=== PATIENT | female | born 1945 | race Caucasian/White ===

== ENCOUNTER → 2018-06-15 14:30 | Outpatient (CLI) | payer MEDICARE, SELFPAY ==
--- NOTE | 2018-06-15 | DI.MG.S_ITS ---
UNILATERAL RIGHT DIGITAL DIAGNOSTIC MAMMOGRAM 3D/2D WITH ADDITIONAL VIEWS: 06/15/2018 CLINICAL: Additional evaluation requested from prior study. Comparison is made to exams dated: 04/20/2018 mammogram, 12/26/2016 mammogram, and 12/15/2016 mammogram - [facility]. The tissue of the right breast is predominantly fatty. There is a 1.1 cm asymmetry in the right breast middle depth central to the nipple seen on the mediolateral oblique view only. No other significant masses or calcifications are seen in the breast. IMPRESSION: INCOMPLETE: NEEDS ADDITIONAL IMAGING EVALUATION The 1.1 cm asymmetry in the right breast is indeterminate. An ultrasound is recommended. This exam was interpreted at Station ID: [id number]. NOTE: For mammograms, a report in lay terms will be sent to the patient. Approximately 15% of breast malignancies will not be visualized mammographically. In the management of a palpable breast mass, a negative mammogram must not discourage biopsy of a clinically suspicious lesion. Electronically Signed By: Dom busch/hilton:06/15/2018 16:30:36 ACR BI-RADS Category 0: Incomplete [id number]
--- NOTE | 2018-06-15 | DI.US.S_ITS ---
ULTRASOUND OF RIGHT BREAST: 06/15/2018 CLINICAL: Patient returns for additional imaging over a suspected mass in the right breast. Comparison is made to exams dated: 06/15/2018 mammogram - [facility], 04/20/2018 mammogram, and 12/26/2016 mammogram - [facility]. Color flow ultrasound of the right breast was performed. Schultz scale images of the real-time examination were reviewed. IMPRESSION: SUSPICIOUS OF MALIGNANCY - FOLLOW-UP RECOMMENDED There is no abnormality seen in the right breast to correspond with the mammography finding, however, stereotactic biopsy is recommended. Findings and recommendations discussed in perosn with the patient by Dr. Pandya of the department of radiology at the time of evaluation. This exam was interpreted at Station ID: [id number]. Electronically Signed By: Dom Quiles M.D. cj/:06/15/2018 16:31:52 letter sent: Biopsy Required Ultrasound BI-RADS: 4 Suspicious abnormality
== END ==
PROVIDERS: PCP Internal Medicine; Visit Provider Internal Medicine
DX: R92.8 Other abnormal and inconclusive findings on diagnostic imaging of breast (principal)
CPT/HCPCS: 76642; 77065; G0279

== ENCOUNTER 2020-02-22 23:20 | Observation (INO) | payer MEDICARE, SELFPAY ==
[2020-02-22 23:30] VITALS: BP 173/81; PULSE 84; RESP 16; TEMP 36.9; O2SAT 98; BMI 31.6
--- NOTE | 2020-02-22 23:30 | PC.NURSE ---
PT states L arm numbness and pain since 1700 today, pt states difficulty finding words and denies any headaches, vision changes, CP, SOB or nausea. Ambulated to room with steady gait. States hx of DM and panic attacks. Pt appears anxious speaking clearly in full sentences.
--- NOTE | 2020-02-22 23:30 | DI.CT.S_ITS ---
PROCEDURE: CT HEAD/BRAIN WO CON INDICATIONS: trouble with speech, Left arm numbness TECHNIQUE: Noncontrast 4.5 mm thick angled axial sections acquired from the foramen magnum to the vertex, with coronal and sagittal reformats. For radiation dose reduction, the following was used: automated exposure control, adjustment of mA and/or kV according to patient size. COMPARISON: None. FINDINGS: Image quality: Excellent. CSF spaces: Basal cisterns are patent. No extra-axial fluid collections. The ventricles are symmetric in size and shape. Brain: No intracranial bleeds or masses. There is cerebral volume loss for age, with resultant ventricular and sulcal prominence. There are periventricular and deep white matter chronic small vessel ischemic changes. There is intracranial internal carotid artery atherosclerosis. Skull and face: Calvarium and visualized facial bones appear intact, without suspicious lesions. Sinuses: Visualized sinuses and mastoids are clear. IMPRESSION: 1. CT head without acute intracranial abnormalities or acute calvarial fractures. 2. Age-related senescent changes and sequela of chronic small vessel ischemic disease. No significant discrepancy with the shift supervisor film processing radiology preliminary report. Dictated by: Walt Morris M.D. on 02/23/2020 at 7:33 Approved by: Walt Morris M.D. on 02/23/2020 at 7:35
[2020-02-22] MEDS: SODIUM CHLORIDE 0.9% 1,000 ML 150 ML IV (23:45)
[2020-02-22 23:57] LABS: Add Manual Diff / Slide Review NO; Basophils Absolute Auto 100 /uL (0-100); Basophils Percent Auto 0.9 % (0-2); Eosinophils Absolute Auto 300 /uL (0-450); Eosinophils Percent Auto 3.9 % (2-4); Hematocrit 40.7 % (36-46); Hemoglobin 14.2 g/dL (12.0-16.0); Lymphocytes Absolute Auto 1200 /uL (1100-4500); Lymphocytes Percent Auto 17.4 % (25-40); Mean Corpuscular HGB Conc 34.8 % (30-36); Mean Corpuscular Hemoglobin 30.9 PG (26-34); Mean Corpuscular Volume 88.8 fL (80-100); Monocytes Absolute Auto 700 /uL (0-900); Monocytes Percent Auto 10.1 % (3-14); Neutrophils Absolute Auto 4500 /uL (1500-7000); Neutrophils Percent Auto 67.7 % (50-75); Platelet Count 187 X10^3/uL (150-400); Red Blood Cell Count 4.59 X10^6/uL (4.0-5.2); Red Cell Distribution Width 13.6 % (11.6-14.8); White Blood Cell Count 6.6 X10^3/uL (4.5-11.0)
[2020-02-23] VITALS (7 sets, daily range): BP systolic 114–154; BP diastolic 61–98; PULSE 66–82; RESP 15–24; TEMP 36–36.8; O2SAT 96–98; BMI 31.6; BMI 31.7
--- NOTE | 2020-02-23 | DI.ECHO.S_ITS ---
[facility] +---------+ : : [address] : : : : [id number] : : : : Phone: [phone] Echocardiogram Report + + :Name: NICK CARROLL Study Date: 02/23/2020 Height: 65 in : :[facility] Weight: 190 lb : : Gender: Female BSA: 1.9 m2 : :: 1945 Age: 74 yrs BP: 142/98 mmHg: :Reason For Study: TIA : :Ordering Physician: Fannie : :Hospitalist Performed By: Melissa Koenig : :Referring: LEIGHA DIAZ : + + Interpretation Summary The left ventricle is normal in size. Left ventricular systolic function is normal without focal wall motion abnormalities. The ejection fraction is estimated to be 60-65%. Diastolic parameters suggest probable normal left ventricular diastolic function and normal filling pressures. The right ventricle is normal in size and function. Pulmonary artery pressures cannot be estimated because of the lack of a measurable TR jet velocity but the IVC suggests a CVP of around 3 mmHg. The left atrium is mildly dilated. Right atrial size is normal. A patent foramen ovale is probably present. There is no significant valvular heart disease. The aortic root is normal size. Procedure: A two-dimensional transthoracic echocardiogram with color flow and Doppler was performed. There is no prior echocardiogram noted for this patient. The study quality was technically adequate. The patient was in normal sinus rhythm during the exam. Left Ventricle: The left ventricle is normal in size. There is normal left ventricular wall thickness. Left ventricular systolic function is normal without focal wall motion abnormalities. The ejection fraction is estimated to be 60-65%. Diastolic parameters suggest probable normal left ventricular diastolic function and normal filling pressures. Right Ventricle: The right ventricle is normal in size and function. Atria: The left atrium is mildly dilated. Right atrial size is normal. A patent foramen ovale is present. Mitral Valve: The mitral valve is normal in structure and function. There is no mitral regurgitation noted. Aortic Valve: The aortic valve is normal in structure and function. The aortic valve is trileaflet. The aortic valve opens well. No aortic regurgitation is present. Tricuspid Valve: The tricuspid valve is normal in structure and function. There is a trace or physiologic amount of tricuspid regurgitation. Pulmonary artery pressures cannot be estimated because of the lack of a measurable TR jet velocity but the IVC suggests a CVP of around 3 mmHg. Pulmonic Valve: The pulmonic valve is normal in structure and function. There is trace pulmonic regurgitation. There is no significant valvular heart disease. Great Vessels: The aortic root is normal size. The ascending aorta could not be visualized. The pulmonary artery is normal size. The IVC is of normal diameter and collapses greater than 50% with a sniff. This suggests a low right atrial pressure of 3 mm Hg. Pericardium/ Pleura There is no pericardial effusion. There is no pleural effusion. MMode/2D Measurements & Calculations LVIDd: 5.0 cm LVOT diam: 2.0 cm LVIDs: 3.4 cm Ao root diam: 3.4 cm FS: 30.9 % Ao Arch Diam (Prox Trans): 2.8 cm EPSS: 0.40 cm IVSd: 0.77 cm LVPWd: 0.79 cm LV lowery. diameter/BSA (cm/m^2): 2.6 LV sys. diameter/BSA (cm/m^2): 1.8 LA A2 area: 24.5 cm2 RA long axis: 4.4 cm LA A4 area: 19.4 cm2 RA area: 15.1 cm2 LA length (vol): 5.6 cm RA vol: 44.2 ml LA vol: 72.1 ml RA : 22.8 ml/m2 LA vol index: 37.2 ml/m2 IVC diam: 1.9 cm RVD1 (basal): 3.4 cm TAPSE: 2.4 cm Doppler Measurements & Calculations Ao V2 max: 109.0 cm/sec LVOT Max Jcarlos: 96.1 cm/sec Ao V2 mean: 68.6 cm/sec LV V1 max P.7 mmHg Ao max P.8 mmHg LV V1 VTI: 19.7 cm Ao mean P.3 mmHg DEMETIRO(I,D): 2.4 cm2 Ao V2 VTI: 24.8 cm DEMETRIO(V,D): 2.7 cm2 sev ratio: 0.79 DEMETRIO indexed to BSA (cm^2/m^2): 1.2 MV E max jcarlos: 85.2 cm/sec PA V2 max: 54.9 cm/sec MV A max jcarlos: 67.4 cm/sec PA V2 mean: 35.8 cm/sec MV E/A: 1.3 PA mean P.60 mmHg Med Peak E' Jcarlos: 7.7 cm/sec E/E' med: 11.1 Lat Peak E' Jcarlos: 10.5 cm/sec E/E' lat: 8.1 E/e' average: 9.6 MV dec time: 0.23 sec SV(LVOT): 59.9 ml Reading Physician:01:57 PM
[2020-02-23 00:03] LABS: Prothrombin Time 11.2 SECONDS (10.1-12.7)
[2020-02-23 00:05] LABS: PTT Partial Thromboplastin Tim 29 SECONDS (26.4-36.2)
[2020-02-23 00:07] LABS: BUN Creatinine Ratio 26.6 (6-22); Blood Urea Nitrogen 17 mg/dL (7-17); Calcium 9.8 mg/dL (8.4-10.2); Carbon Dioxide 26 mmol/L (22-32); Chloride 102 mmol/L (98-107); Creatine Kinase 271 U/L (30-135); Estimated Glomerular Filt Rate > 60.0 mL/min (>60); Glucose 148 mg/dL (80-110); Potassium 4.3 mmol/L (3.4-5.1); Sodium 135 mmol/L (137-145)
--- NOTE | 2020-02-23 00:16 | ED.CHESTPAIN ---
HPI - Chest Pain General Chief Complaint: Chest Pain Stated Complaint: pain left arm went numb from head down arm today Time Seen by Provider: 02/22/20 23:22 Source: patient Mode of arrival: Ambulatory Limitations: no limitations History of Present Illness HPI narrative: 74-year-old female nonsmoker with history of GERD and anxiety presents with a chief complaint of left arm numbness and tingling and difficulty finding words since about 5:00 p.m. today. She denies any other neurologic findings such as blurred vision, headaches or difficulty with ambulation. She denies any recent injury. She denies any history of the same. She denies any dizziness or lightheadedness, she denies any chest pain, shortness of breath for generalized weakness. She denies any provocation or palliation of her symptoms. MD complaint: other Onset (ago): hour(s) Duration: constant Onset: during rest Severity: mild Pain radiation: LUE Treatments prior to arrival chest pain: none Related Data On Oral Contraceptives: No Home Medications Medication Instructions Recorded Confirmed citalopram 10 mg tablet 20 mg PO DAILY 06/14/18 06/14/18 gabapentin 300 mg/6 mL (6 mL) oral 300 mg PO DAILY 06/14/18 06/14/18 solution omeprazole 20 mg capsule,delayed 20 mg PO DAILY 06/14/18 06/14/18 release Allergies Allergy/AdvReac Type Severity Reaction Status Date / Time Penicillins Allergy Verified 06/14/18 11:56 Review of Systems Constitutional Constitutional: Denies chills, Denies fatigue, Denies fever(s), Denies frequent falls, Denies lethargy and Denies weakness Eyes Eyes: Denies change in vision, Denies eye discharge, Denies irritation and Denies loss of vision ENT Ears, Nose, Mouth, and Throat: Denies change in voice, Denies dizziness, Denies neck pain, Denies sore throat and Denies throat swelling Cardiovascular Cardiovascular: Denies chest pain, Denies irregular heart rhythm, Denies lightheadedness, Denies palpitations, Denies dyspnea, Denies dyspnea on exertion and Denies orthopnea Respiratory Respiratory: Denies cough, Denies dyspnea, Denies dyspnea on exertion and Denies wheezing Gastrointestinal Gastrointestinal: Denies abdominal pain, Denies change in bowel habits, Denies diarrhea, Denies nausea and Denies vomiting Genitourinary Genitourinary: Denies hematuria, Denies flank pain, Denies urinary incontinence and Denies urinary urgency Musculoskeletal Musculoskeletal: Denies back pain, Denies muscle weakness, Denies neck pain, Reports numbness and Reports tingling Integumentary/Breasts Skin/Breast: Denies pruritus, Denies erythema, Denies rash and Denies wounds Neurologic Neurologic: Reports abnormal speech, Denies behavioral changes, Reports confusion, Denies dizziness, Denies frequent falls, Denies loss of vision, Reports numbness, Reports tingling and Denies weakness Psychiatric Psychiatric: Denies anxiety, Denies behavioral changes, Reports confusion, Denies depression, Denies homicidal ideation and Denies suicidal ideation Endocrine Endocrine: Denies fatigue, Denies flushing and Denies palpitations Hematologic/Lymphatic Hematologic/Lymphatic: Denies easy bruising Allergic/Immunologic Allergic/Immunologic: Denies urticaria, Denies throat swelling and Denies wheezing Patient History Social History Smoking Status: Never smoker Smoking Status: Never smoker Exam Narrative Exam Narrative: GENERAL: [74] year old patient appears stated age. Well-nourished, well-developed patient, in mild distress. Difficulty finding words on multiple occasions, patient states she knows what she wants to say but is having trouble getting out HEAD: Atraumatic. Normocephalic. EYES: Pupils equal round and reactive. Extraocular motions intact. No scleral icterus. No injection or drainage. ENT: Nose without bleeding, purulent drainage. Throat without erythema, tonsillar hypertrophy or exudate. Airway patent. NECK: Trachea midline. Non tender. NO change with axial loading or ROM of neck CARDIOVASCULAR: Regular rate and rhythm without murmurs, gallops, or rubs. RESPIRATORY: Clear to auscultation. Breath sounds equal bilaterally. No wheezes, rales, or rhonchi. GASTROINTESTINAL: Abdomen soft, non-tender, nondistended. EXTREMITIES: No edema or joint tenderness. No ongoing pain, no reproduceable symptoms BACK: Nontender without deformity or crepitance. No flank tenderness. NEURO: AOx3. SKIN: No rash or erythema of visible areas NIH Stroke Scale 1a. LOC: Patient is alert and keenly responsive (0) 1b. LOC Questions: Patient answers both LOC questions accurately (0) 1c. LOC Commands: Patient performs both tasks correctly (0) 2. Best Gaze: Normal (0) 3. Visual: No visual loss (0) 4. Facial palsy: Normal symmetrical movements (0) 5. Motor arm: No drift (0) 6. Motor leg: No drift (0) 7. Limb ataxia: Absent (0) 8. Sensory: Normal (0) 9. Best language: No aphasia; normal (0) 10. Dysarthria: Normal (0) 11. Extinction and inattention: No abnormality (0) NIHSS: 0 Initial Vital Signs Initial Vital Signs: Vital Signs Temperature 98.4 F 02/22/20 23:30 Pulse Rate 84 02/22/20 23:30 Respiratory Rate 16 02/22/20 23:30 Blood Pressure 173/81 H 02/22/20 23:30 Pulse Oximetry 98 02/22/20 23:30 Course Orders Ordered: ED Orders 02/22/20 23:30 CT head/brain wo con Stat Urine Drug Screen, Rapid Stat 02/22/20 23:38 Basic Metabolic Panel Stat Complete Blood Count AUTO DIFF Stat Partial Thromboplastin Time Stat Prothrombin Time INR Stat Troponin & CK Cardiac Panel Stat 02/22/20 23:40 EKG-12 Lead Stat Sodium Chloride (Normal Saline 0.9%) 1,000 mls @ 150 mls/hr IV CONT ENZO Last Admin: 02/22/20 23:45 Dose: 150 mls/hr Documented by: ALESHA Discontinued Medications Aspirin (Aspirin Chew) 324 mg PO NOW ONE Stop: 02/23/20 00:25 Last Admin: 02/23/20 00:52 Dose: 324 mg Documented by: ALESHA Vital Signs Vital signs: Vital Signs - 8 hr 02/22/20 23:30 02/23/20 01:05 02/23/20 01:30 Temperature 98.4 F Pulse Rate 84 80 79 Respiratory Rate 16 15 Blood Pressure 173/81 H Blood Pressure [Left Arm] 151/61 H 142/98 H Pulse Oximetry 98 97 97 MDM - Chest Pain Lab Data Result diagrams: 02/22/20 23:38 02/22/20 23:38 Labs: Lab Results 02/22/20 02/22/20 02/22/20 Range/Units 23:38 23:38 23:38 WBC 6.6 (4.5-11.0) X10^3/uL RBC 4.59 (4.0-5.2) X10^6/uL Hgb 14.2 (12.0-16.0) g/dL Hct 40.7 (36-46) % MCV 88.8 (80-100) fL MCH 30.9 (26-34) PG MCHC 34.8 (30-36) % RDW 13.6 (11.6-14.8) % Plt Count 187 (150-400) X10^3/uL Neut % (Auto) 67.7 (50-75) % Lymph % (Auto) 17.4 L (25-40) % [place] % (Auto) 10.1 (3-14) % Eos % (Auto) 3.9 (2-4) % Baso % (Auto) 0.9 (0-2) % Neut # (Auto) 4500 (1289-1573) /uL Lymph # (Auto) 1200 (5396-7702) /uL [place] # (Auto) 700 (0-900) /uL Eos # (Auto) 300 (0-450) /uL Baso # (Auto) 100 (0-100) /uL PT 11.2 (10.1-12.7) SECONDS INR 1.0 (0.9-1.3) APTT 29 (26.4-36.2) SECONDS Sodium 135 L (137-145) mmol/L Potassium 4.3 (3.4-5.1) mmol/L Chloride 102 (98-107) mmol/L Carbon Dioxide 26 (22-32) mmol/L BUN 17 (7-17) mg/dL Creatinine 0.64 (0.52-1.04) mg/dL Estimated GFR > 60.0 (>60) mL/min BUN/Creatinine Ratio 26.6 H (6-22) Glucose 148 H (80-110) mg/dL Calcium 9.8 (8.4-10.2) mg/dL Total Creatine Kinase 271 H (30-135) U/L CK-MB (CK-2) 4.75 H (<2.37) ng/mL CK-MB (CK-2) Rel Index 1.8 (1.5-5.0) % Troponin I < 0.012 (0.01-0.034) ng/mL ECG Data Attestation: I personally reviewed and interpreted this ECG as follows: Interpretation: EKG is normal sinus rhythm rate [79 ] and free of any signs of ischemia or ectopy. No ST segmental elevation or depression. No T wave inversions MDM Narrative Medical decision making narrative: Patient has resolved confusion, expressive aphasia and LUE numbness. CT normal. TIA highly considered. She does have longstanding history of some L shoulder pain which occasionally causes radiation of pain into her arm which improves with manipulation. Today's episode was much different. No reproduceability. Cardiac etiology also considered, but nonischemic EKG, normal troponin and lack of other typical cardiac equivalents. Patient requires further evaluation with Stroke MRI and likely Echo Discharge Plan Departure Patient Disposition: Admitted as Observation Clinical Impression: Brain TIA Admit Date/Time: 02/23/20 02:27 Admit Provider: Hina Deal
[2020-02-23 00:19] LABS: Troponin I < 0.012 ng/mL (0.01-0.034)
[2020-02-23 00:22] LABS: CKMB % Relative Index 1.8 % (1.5-5.0); Creatine Kinase MB 4.75 ng/mL (<2.37)
[2020-02-23 00:24] LABS: HEMOLYSIS 52 (0-50)
[2020-02-23] MEDS: ASPIRIN 81 MG CHEW TAB 324 MG PO (00:52)
--- NOTE | 2020-02-23 02:53 | DI.MRI.S_ITS ---
PROCEDURE: MR STROKE Pre- and post-contrast brain MRI, non-contrast brain MR angiogram, pre- and postcontrast neck MR angiogram INDICATIONS: Left sided weakness and tingling of mouth, jaw and arm TECHNIQUE: Brain: Noncontrast axial T1 spin echo, axial T2 fast spin echo, sagittal and axial FLAIR, coronal T2 fast spin echo, axial gradient echo, axial diffusion and ADC through the brain. After the administration of contrast, axial 3D VIBE of the cranial vasculature and brain. Brain MRA: Non-contrast 3-D time of flight MR angiogram, with multiple kfczmne-fodainrsi-hksfiuadih (MIP) reformats performed. Neck MRA: Axial and sagittal TruFISP through the neck. Coronal dynamic MR angiogram during administration of contrast in the arterial and venous phases, with 3-dimenstional kcxdbsw-vseenahch-exsztmlwpm (MIP) reformats constructed from subtraction images. COMPARISON: [facility], CT, CT HEAD/BRAIN WO CON, 02/22/2020, 23:34. FINDINGS: Image quality: Excellent. BRAIN: CSF spaces: Ventricles are normal in size and shape. Basal cisterns are patent. No extra-axial fluid collections. Brain: No intracranial bleeds or mass effects. Mild cerebral volume loss and periventricular white matter chronic small vessel makes it changes are present. Schultz-white matter interface is normal. Diffusion weighted images show no acute ischemic insults. Brainstem appears normal. Normal intravascular flow voids are present. No abnormal intracranial enhancement. Skull and face: Calvarial marrow signal is normal. Orbits appear normal. Sinuses: Sinuses and mastoids are clear. BRAIN MR ANGIOGRAM: Anterior circulation: Intracranial internal carotid arteries are normal in size and enhancement. The flow within the paired anterior cerebral arteries is normal and symmetric. The flow within the middle cerebral arteries is normal and symmetric. The anterior communicating artery is seen. No significant stenoses, occlusions or aneurysms. Posterior circulation: The visualized portions of the vertebral arteries demonstrate normal caliber, and join to form a normal appearing basilar artery. The posterior cerebral arteries are symmetric. No significant stenosis, occlusion or aneurysms. NECK MR ANGIOGRAM: Carotids: Great vessels demonstrate a conventional anatomy as they arise from the aortic arch. The origins of the common carotid arteries appear patent. The calibers and courses of both common carotid arteries are normal. The bifurcation regions appear normal bilaterally. The internal carotid arteries demonstrate normal course and caliber. Posterior circulation: The origins of the vertebral arteries appear patent. More superior portions of both vertebral arteries demonstrate normal course and caliber, and join to form a normal appearing basilar artery. Miscellaneous: Subclavian arteries appear patent. Pre-contrast images through the neck show no soft tissue abnormalities. Degenerative disc disease in cervical spine. There is moderate cardiomegaly. IMPRESSION: BRAIN MRI: 1. No acute intracranial abnormalities. 2. Mild cerebral volume loss and chronic microvascular ischemic changes. BRAIN MR ANGIOGRAM: 1. No hemodynamic significant stenosis or occlusion in anterior circulations. 2. No hemodynamic significant stenosis or occlusion in posterior circulations. NECK MR ANGIOGRAM: 1. No high-grade stenosis or occlusion in cervical carotid arteries bilaterally. 2. No high-grade stenosis or occlusion in cervical vertebral arteries bilaterally. 3. Moderate cardiomegaly. Dictated by: Magdi Bruno M.D. on 02/23/2020 at 11:04 Approved by: Magdi Bruno M.D. on 02/23/2020 at 11:32
--- NOTE | 2020-02-23 03:00 | PM.HP.1 ---
History of Present Illness History of Present Illness Date Patient Seen: 02/23/20 Time Patient Seen: 03:00 Chief complaint: pain left arm went numb from head down arm today Narrative: Griselda Haney is a pleasant 74-year-old female who presents with neurologic symptoms that started at 5:00 p.m. on 02/21. She was sitting and watching TV when she started to have nerve pain that usually shoots down her arm. She states that was different this time it included having numbness from the head neck and arm area and lasted for about 1 minutes. She also became nauseous and states that she poorly today she is a diabetic and is under a lot of stress due to continuing to have to work. She also stated that she had difficulties getting words out and apparently per the ED provider she was confused. She denies difficulty swallowing, chest pain, shortness of breath, vomiting, dysuria, diarrhea or constipation. Patient lives in [facility], PCP is Dr. Strauss. She completed radiation and chemotherapy treatment for breast cancer at [facility]. She states that she had to go in for an MRI and they sent her to [facility] because she states that she is very claustrophobic in small places and rooms. She states that she actually gets claustrophobic sitting in a van. Patient History Medical History Anxiety (Chronic) Gonzales's esophagus with esophagitis (Chronic) Diabetes type 2, controlled (Chronic) History of right breast cancer (Acute) Surgical History H/O mastectomy (Acute) Family & Social History Family History Mother Breast cancer Father Colon cancer Safety & Behavioral: Feels Safe in Current Yes Environment Tobacco & Substance use: Smoking Status Never smoker Meds Home Medications and Allergies Home Medications Medication Instructions Recorded Confirmed Type citalopram 10 mg tablet 20 mg PO DAILY 06/14/18 02/23/20 History omeprazole 20 mg capsule,delayed 20 mg PO DAILY 06/14/18 02/23/20 History release letrozole 2.5 mg PO DAILY 02/23/20 02/23/20 History metformin 500 mg PO BID 02/23/20 02/23/20 History Allergies Allergy/AdvReac Type Severity Reaction Status Date / Time Penicillins Allergy Verified 06/14/18 11:56 Review of Systems Review of Systems ROS: Yes All systems reviewed with the patient and are negative except as otherwise documented Exam Vital Signs (past 8 hours): - 02/22/20 23:30 02/23/20 01:05 02/23/20 01:30 Temperature 98.4 F Pulse Rate 84 80 79 Respiratory Rate 16 15 Blood Pressure 173/81 H Blood Pressure [Left Arm] 151/61 H 142/98 H Pulse Oximetry 98 97 97 02/23/20 02:00 Temperature Pulse Rate 82 Respiratory Rate 24 Blood Pressure Blood Pressure [Left Arm] 146/63 H Pulse Oximetry 96 Oxygen Delivery Method Room Air Narrative Exam Narrative: Gen: Alert, oriented, well-developed 74 y.o. female, mildly anxious HEENT: normocephalic, atraumatic, conjunctiva clear, sclera non-icteric, oral mucosa pink and moist Neck: supple, full ROM, no JVD, trachea is midline Resp: Lungs CTA, non-labored breathing CV: RRR, no murmur or rubs Abd: soft, non-tender, normoactive BTs Skin: no lesions or rashes, dry and intact Neuro: Alert and oriented X 4 w/no focal deficits Extremities: moves all 4 extremities, is ambulatory, negative Lorna?s sign Psyche: normal mood and affect. Objective Labs Result Diagrams: 02/22/20 23:38 02/22/20 23:38 Labs: Laboratory Results - last 24 hr 02/22/20 02/22/20 02/22/20 23:38 23:38 23:38 WBC 6.6 RBC 4.59 Hgb 14.2 Hct 40.7 MCV 88.8 MCH 30.9 MCHC 34.8 RDW 13.6 Plt Count 187 Neut % (Auto) 67.7 Lymph % (Auto) 17.4 L Garrard % (Auto) 10.1 Eos % (Auto) 3.9 Baso % (Auto) 0.9 Neut # (Auto) 4500 Lymph # (Auto) 1200 Garrard # (Auto) 700 Eos # (Auto) 300 Baso # (Auto) 100 PT 11.2 INR 1.0 APTT 29 Sodium 135 L Potassium 4.3 Chloride 102 Carbon Dioxide 26 BUN 17 Creatinine 0.64 Estimated GFR > 60.0 BUN/Creatinine Ratio 26.6 H Glucose 148 H Calcium 9.8 Total Creatine Kinase 271 H CK-MB (CK-2) 4.75 H CK-MB (CK-2) Rel Index 1.8 Troponin I < 0.012 Assessment & Plan Assessment & Plan narrative: Griselda Haney will be placed into observation for further workup of a TIA versus cardiac Suspected TIA, acute and present on admission -MR stroke and MRI of the neck ordered -NIH scale q shift Chest pain rule out, acute and present on admission -Left head through arm pain concerning for cardiac cause -echo in the am -First troponin was negative, pending second one at 0500. Diabetes type 2, chronic and present on admission -A1c ordered and pending -Metformin held -Medium dose insulin correctional scale ordered achs Right sided breast cancer, chronic and present on admission -Continue home dose of letrozole 2.5 mg po daily Barretts Esophogitis, chronic and present on admission -Continue home dose of omeprazole, 20 mg po daily Anxiety disorder -continue home dose of citalopram 20 mg po daily -Patient will likely need oral ativan prior to undergoing MRI due to anxiety and claustrophobia Consults: none Patient is observation status as her stay is not likely to exceed 2 midnights. FEN: IV saline lock, Carb control diet, BMP in the am. VTE prophylaxis: Bilateral SCDs Dispo: Probable discharge to home Code Status: Full Code as discussed with patient
--- NOTE | 2020-02-23 03:33 | P.HP_ITS ---
History of Present Illness History of Present Illness Chief complaint: pain left arm went numb from head down arm today Narrative: Griselda Haney is a pleasant 74-year-old female who presents with neurologic symptoms that started at 5:00 p.m. on 02/21. She was sitting and watching TV when she started to have nerve pain that usually shoots down her arm. She states that was different this time it included having numbness from the head neck and arm area and lasted for about 1 minutes. She also became nauseous and states that she poorly today she is a diabetic and is under a lot of stress due to continuing to have to work. She also stated that she had difficulties getting words out and apparently per the ED provider she was confused. She denies difficulty swallowing, chest pain, shortness of breath, vomiting, dysuria, diarrhea or constipation. Patient lives in [facility], PCP is Dr. Strauss. She completed radiation and chemotherapy treatment for breast cancer at [facility]. She states that she had to go in for an MRI and they sent her to [facility] because she states that she is very claustrophobic in small places and rooms. She states that she actually gets claustrophobic sitting in a van. Patient History Medical History Anxiety (Chronic) Gonzales's esophagus with esophagitis (Chronic) Diabetes type 2, controlled (Chronic) History of right breast cancer (Acute) Surgical History H/O mastectomy (Acute) Family & Social History Family History Mother Breast cancer Father Colon cancer Social History: household members family Prior Living Arrangements House Safety & Behavioral: Feels Safe in Current Yes Environment Been Physically Hurt or No Threatened By a Person Suicide Plan Description No Plan Tobacco & Substance use: Smoking Status Never smoker alcohol intake former Substance Use Type does not use Meds Home Medications and Allergies Home Medications Medication Instructions Recorded Confirmed Type citalopram 10 mg tablet 20 mg PO DAILY 06/14/18 02/23/20 History omeprazole 20 mg capsule,delayed 20 mg PO DAILY 06/14/18 02/23/20 History release letrozole 2.5 mg PO DAILY 02/23/20 02/23/20 History metformin 500 mg PO BID 02/23/20 02/23/20 History Allergies Allergy/AdvReac Type Severity Reaction Status Date / Time Penicillins Allergy Verified 06/14/18 11:56 Exam Vital Signs (past 8 hours): - 02/22/20 23:30 02/23/20 01:05 02/23/20 01:30 Temperature 98.4 F Pulse Rate 84 80 79 Respiratory Rate 16 15 Blood Pressure 173/81 H Blood Pressure [Left Arm] 151/61 H 142/98 H Pulse Oximetry 98 97 97 02/23/20 02:00 02/23/20 03:05 Temperature 96.8 F L Pulse Rate 82 79 Respiratory Rate 24 16 Blood Pressure 154/79 H Blood Pressure [Left Arm] 146/63 H Pulse Oximetry 96 98 Oxygen Delivery Method Room Air Oxygen Flow Rate 0 Objective Labs Result Diagrams: 02/22/20 23:38 02/22/20 23:38 Labs: Laboratory Results - last 24 hr 02/22/20 02/22/20 02/22/20 23:38 23:38 23:38 WBC 6.6 RBC 4.59 Hgb 14.2 Hct 40.7 MCV 88.8 MCH 30.9 MCHC 34.8 RDW 13.6 Plt Count 187 Neut % (Auto) 67.7 Lymph % (Auto) 17.4 L Davidson % (Auto) 10.1 Eos % (Auto) 3.9 Baso % (Auto) 0.9 Neut # (Auto) 4500 Lymph # (Auto) 1200 Davidson # (Auto) 700 Eos # (Auto) 300 Baso # (Auto) 100 PT 11.2 INR 1.0 APTT 29 Sodium 135 L Potassium 4.3 Chloride 102 Carbon Dioxide 26 BUN 17 Creatinine 0.64 Estimated GFR > 60.0 BUN/Creatinine Ratio 26.6 H Glucose 148 H Calcium 9.8 Total Creatine Kinase 271 H CK-MB (CK-2) 4.75 H CK-MB (CK-2) Rel Index 1.8 Troponin I < 0.012 Quality VTE Deep Vein Thrombosis/Pulmonary Embolism Present on Admission: No
[2020-02-23 04:15] LABS: Ur Creatinine Normal (Normal); Ur Specific Gravity Normal (Normal); Urine pH Normal (Normal)
[2020-02-23 04:16] LABS: UR Morphine/Opiate cutoff 300 Negative (Negative); Urine Amphetamines Negative (Negative); Urine Barbiturates Negative (Negative); Urine Benzodiazepines Negative (Negative); Urine Cocaine Negative (Negative); Urine MDMA Negative (Negative); Urine Methadone Negative (Negative); Urine Methamphetamines Negative (Negative); Urine Oxycodone Negative (Negative); Urine Phencyclidine Negative (Negative); Urine Tetrahydrocannabinol Negative (Negative); Urine Tricyclic Antidepressant Negative (Negative)
--- NOTE | 2020-02-23 05:04 | PC.ADMIT ---
Addendum entered by Chio Batista R.N. 02/23/20 05:12: [facility] on admission was 0. Original Note: Patient admitted to room 217 @ 0300 from ED; arrived by stretcher but walked from stretcher into room. Is alert and oriented. Breath sounds CTA with RA sat of 98%. HRR; placed on tele with reading of SR w/BBB. Denies nausea. BT present and abdomen is soft. Denies dysuria or frequency but states she does have urgency; denies incontinence. States she came in due to pain in left arm followed by sensation of numbness in head radiating into left arm last approximately 2 minutes and jittery feeling. States she still is having intermittent sensation of discomfort in left arm. Repeatedly stating, throughout admission, I shouldn't have come here. Endorses increased stress at her job at a [email or web address] due to decrease in staff due to COVID-19 pandemic. Also states she has her sister living with her which has additionally increased her stress as sister tries to take over. Is able to turn self in bed and is steady on feet but advised to call for SBA when getting up to bathroom at night for safety purposes; verbalizes understanding. No skin issues. Fall risk score is moderate; bed alarm activated for night time safety. UA obtained and sent to lab for drug screen ordered in ER. Bilateral calf SCD's applied. Instructed in use of call light and bed controls. [id number] Admission Note: The patient,Griselda Haney,74 y/o, was given written information regarding hospital policies, unit procedures and contact persons. Patient's smoking status: Never smoker. Vital Signs - 8 hr 02/22/20 23:30 02/23/20 01:05 02/23/20 01:30 Temperature 98.4 F Pulse Rate 84 80 79 Respiratory Rate 16 15 Blood Pressure 173/81 H Blood Pressure [Left Arm] 151/61 H 142/98 H Pulse Oximetry 98 97 97 02/23/20 02:00 02/23/20 03:05 Temperature 96.8 F L Pulse Rate 82 79 Respiratory Rate 24 16 Blood Pressure 154/79 H Blood Pressure [Left Arm] 146/63 H Pulse Oximetry 96 98
[2020-02-23] MEDS: PANTOPRAZOLE 20 MG TABLET PO (05:25)
[2020-02-23 05:47] LABS: Add Manual Diff / Slide Review NO; Basophils Absolute Auto 100 /uL (0-100); Basophils Percent Auto 0.8 % (0-2); Eosinophils Absolute Auto 300 /uL (0-450); Eosinophils Percent Auto 4.4 % (2-4); Hematocrit 39.1 % (36-46); Hemoglobin 13.5 g/dL (12.0-16.0); Lymphocytes Absolute Auto 1500 /uL (1100-4500); Lymphocytes Percent Auto 21.7 % (25-40); Mean Corpuscular HGB Conc 34.5 % (30-36); Mean Corpuscular Hemoglobin 30.6 PG (26-34); Mean Corpuscular Volume 88.8 fL (80-100); Monocytes Absolute Auto 700 /uL (0-900); Monocytes Percent Auto 9.4 % (3-14); Neutrophils Absolute Auto 4500 /uL (1500-7000); Neutrophils Percent Auto 63.7 % (50-75); Platelet Count 176 X10^3/uL (150-400); Red Blood Cell Count 4.41 X10^6/uL (4.0-5.2); Red Cell Distribution Width 13.9 % (11.6-14.8); White Blood Cell Count 7.1 X10^3/uL (4.5-11.0)
[2020-02-23 05:57] LABS: BUN Creatinine Ratio 27.1 (6-22); Blood Urea Nitrogen 16 mg/dL (7-17); Calcium 9.7 mg/dL (8.4-10.2); Carbon Dioxide 25 mmol/L (22-32); Chloride 104 mmol/L (98-107); Cholesterol 168 mg/dL (140-199); Estimated Glomerular Filt Rate > 60.0 mL/min (>60); Glucose 129 mg/dL (80-110); HDL Cholesterol 41 mg/dL (40-60); HEMOLYSIS 37 (0-50); LDL Cholesterol Calculated 74 mg/dL (<100); Sodium 139 mmol/L (137-145); Triglycerides 265 mg/dL (35-150)
[2020-02-23 06:08] LABS: Troponin I < 0.012 ng/mL (0.01-0.034)
[2020-02-23 06:18] LABS: Hemoglobin A1C% w Est Avg Glu 7.1 % (4.0-6.0)
[2020-02-23] MEDS: CITALOPRAM 20 MG TABLET PO (09:23)
[2020-02-23] MEDS: ASPIRIN EC 81 MG TABLET PO (09:23)
[2020-02-23] MEDS: INFLUENZA VACCINE 0.5 ML SYRINGE IM (09:24)
[2020-02-23] MEDS: LETROZOLE 2.5 MG TABLET PO (09:30)
--- NOTE | 2020-02-23 11:24 | CM.DANOTE ---
Discharge Planning/Care Management DCP: assessment: case received and discussed in Team Rounds. EMR reviewed. Met then with pt and introduced self and role. Pt is a 74 year old female who admitted early this morning to care of hospitalist team. Payer: Medicare and AARP Admission status: OBS: confirmed by UR ALIYA Henderson PCP: was Dr. Strauss until he retired: currently: Dr. Gallagher (she has seen him only once). DCP template completed with info given by pt during our discussion. Pt confirms she has had the MRI today and is waiting for the ECHO. She reports her arm feels much better at this point. PT/OT have been ordered but have not yet worked with pt. Pt appears comfortable and converses easily at this time. 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 At this point will await test results and therapy input. Dr. Parisi will be seeing pt later today. P: likely home when stable for same but follow: pt's friend Emily Solano: [phone]: will be picking her up when she is ok'd for d/c. CM Discharge Assessment Start: 02/23/20 11:23 Freq: Status: Active Protocol: Document 02/23/20 11:23 ITV (Rec: 02/23/20 11:24 ITV [id number]) Discharge Planning Assessment Advance Directives? No History Provided By Patient,Medical Record Has Patient been admitted in last 30 No days? Prior Living Arrangements House Household Members family Comment lives with her sister Xi Type of transporation used prior to Drives own vehicle admit Independent with ADL's Yes Is patient alert and oriented? Yes Whiteboard Updated in Patient Room with Yes name and ext. 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
--- NOTE | 2020-02-23 11:25 | OT.IP.EVAL ---
Past Medical History (Last Reviewed 02/23/20 @ 03:12 by MARIA M Dominique) Anxiety (Chronic) Gonzales's esophagus with esophagitis (Chronic) Diabetes type 2, controlled (Chronic) History of right breast cancer (Acute) Surgical History (Last Reviewed 02/23/20 @ 03:12 by MARIA M Dominique) H/O mastectomy (Acute) Occupational Therapy Inpatient Evaluation/Re-Eval M1 PT/OT-IP Prior Functional Status Start: 02/23/20 14:06 Freq: NEEDED Status: Active Protocol: Document 02/23/20 14:07 [facility] (Rec: 02/23/20 14:27 [facility] [id number]) Medical Review Prior Functional Status Communication Independent. Mobility and Gait Independent with no decvics used. Activities of Daily Living and IADL's COmpletely independent. Social History Household Members family Living Arrangements House Number of Stairs To Enter/Railing? 2 steps with posts on the side. 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 M2 OT-IP Current Condition Start: 02/23/20 14:06 Freq: Status: Active Protocol: Document 02/23/20 14:07 [facility] (Rec: 02/23/20 14:27 [facility] [id number]) Occupational Therapy Current Condition Current Condition Evaluation Date 02/23/20 Treatment Diagnosis Possible TIA Diagnosis Onset Date 02/23/20 Weight Bearing Status Weight Bearing Status Weight Bear as Tolerated M3 OT- IP Subjective and Pain Start: 02/23/20 14:06 Freq: Status: Active Protocol: Document 02/23/20 14:07 [facility] (Rec: 02/23/20 14:27 [facility] [id number]) OT- Subjective Occupational Therapy Visit Type Type Initial Evaluation Visit Start Time 11:25 Visit Stop Time 11:40 Total Visit Minutes 15 Occupational Therapy Visit Comments Patient Comments Pt agreeable to do OT eval. Patient/Caregiver Goals To go home today OT Pain Assessment Pain When Pain Assessed At Rest Pain Present Pain Present Denied Pain M4 OT- IP ADL's Start: 02/23/20 14:06 Freq: Status: Active Protocol: Document 02/23/20 14:07 [facility] (Rec: 02/23/20 14:27 [facility] [id number]) OT [id number] General Evaluation Self-Feeding Ability Independent OT ADL-Grooming General Evaluation Grooming Ability Independent M5 OT- IP IADL's Start: 02/23/20 14:06 Freq: Status: Active Protocol: Document 02/23/20 14:07 [facility] (Rec: 02/23/20 14:27 [facility] [id number]) OT-Instrumental Activities of Daily Living Home Safety Awareness Awareness of Need for Assistance at Home Good Awareness Ability to Problem Solve Emergency Able to Problem Solve Situations Medication Management Medication Management No Deficits Identified Money Management Money Management No Deficits Identified M6 OT- IP Functional Cognition Start: 02/23/20 14:06 Freq: Status: Active Protocol: Document 02/23/20 14:07 [facility] (Rec: 02/23/20 14:27 [facility] [id number]) Cognitive Factors Limiting Selfcare Function Cognitive Ability Level of Alertness Alert Patient Orientation Name,Age,Birthday,Month,Date, Year,Day of Week,Place, Situation Attention Span Ability Capable of Focused Attention, Capable of Sustained Attention Ability to Follow Commands Able to Follow Multi-Step Commands Memory Description No Deficits Noted Safety Awareness No Deficits Noted Problem Solving Ability No deficits Noted Cognitive Comments Cognitive Assessment Comments Pt appears at baseline for cognitive needs. Pt scored 71 seconds on Jerome Making part B which implies normal but not perfect for executive thinking, visual attention, mental flexibility, and speed of processing. OT- Vision and Hearing OT- Hearing Assessment OT- Hearing Assessment WFL OT- Vision Assessment Visual Acuity Glasses All The Time M7 OT- IP Mobility and Balance Start: 02/23/20 14:06 Freq: Status: Active Protocol: Document 02/23/20 14:07 [facility] (Rec: 02/23/20 14:27 [facility] [id number]) OT- Bed Mobility Assessment Rolling Level of Assistance Independent Supine to Sit Supine to Sit Assist Independent Scooting Scooting to Edge of Bed Independent OT-Transfer Assessment Sit to and From Stand Sit to and from Stand Independent Transfers Transfer Ability Independent Comments Mobility Comments No device use , initially after getting up , slight sway in balance but able to easily regain her balance while walking to and from the sink. OT- Gait Assessment Comments Gait Ability Comments Independent for level surfaces with no devices. OT- Balance Assessment Sitting Balance and Reactions Static Sitting Balance Ability Normal Dynamic Sitting Balance Ability Normal Standing Balance and Reactions Static Standing Balance Ability Normal M8 OT- IP Objective Assessments Start: 02/23/20 14:06 Freq: Status: Active Protocol: Document 02/23/20 14:07 [facility] (Rec: 02/23/20 14:27 [facility] [id number]) OT Gross Range of Motion Upper Extremity Range of Motion Assessment Within Functional Limits OT Strength Upper Extremity Strength Assessment Within Functional Limits OT-Muscle Tone Assessment Muscle Tone WNL Yes M9 OT- IP Assessment and Plan Start: 02/23/20 14:06 Freq: Status: Active Protocol: Document 02/23/20 14:07 [facility] (Rec: 02/23/20 14:27 [facility] [id number]) OT Summary Assessment and Plan Potential Rehabilitation Potential Excellent Analytic Complexity at Evaluation Low Summary Progress Towards Goals Safe For Discharge Assessment Summary Pt here for possible TIA and had LUE tingling and numbness which all have resolved and that pt feels back to baseline . Pt looking to go home today . Educated to take her time and ask for assist if needed. Goals Days to Meet Goals 1 Frequency of Treatment Frequency Of Treatment Once a Day Treatment Plan OT Treatment Plan Patient/Family Education, Discharge Planning Discharge Recommendations OT Discharge Recommendations Home with Assistance Transportation Needs at Discharge Private Vehicle
--- NOTE | 2020-02-23 11:52 | PC.NURSE ---
Patient states that her l.arm numbness is improved. Given flu injection to r.arm, tolerated well. She is A&Ox3 and denies pain. Up ambulating in room well and BS 111 this am. Voiding fine, appetite good. Hoping to go home today. Patient tolerated her MRI well. Now getting her Echo done.
--- NOTE | 2020-02-23 15:43 | PT.IIE ---
Surgical History (Last Reviewed 02/23/20 @ 03:12 by MARIA M Dominique) H/O mastectomy (Acute) Medical History (Last Reviewed 02/23/20 @ 03:12 by MARIA M Dominique) Anxiety (Chronic) Gonzales's esophagus with esophagitis (Chronic) Diabetes type 2, controlled (Chronic) History of right breast cancer (Acute) Physical Therapy Inpatient Evaluation/Re-Eval M1 PT/OT-IP Prior Functional Status Start: 02/23/20 14:06 Freq: NEEDED Status: Active Protocol: Document 02/23/20 14:40 [facility] (Rec: 02/23/20 15:43 [id number]) Medical Review Prior Functional Status Communication Independent. Mobility and Gait Independent with no decvics used. Activities of Daily Living and IADL's COmpletely independent. Social History Household Members family Living Arrangements House Number of Stairs To Enter/Railing? 2 steps with post on the side. 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 Pt lives with her sister Xi in [facility]. 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 M2 PT-IP Current Condition Start: 02/23/20 14:09 Freq: NEEDED Status: Active Protocol: Document 02/23/20 14:40 [facility] (Rec: 02/23/20 15:43 [id number]) Physical Therapy Current Condition Current Condition Evaluation Date 02/23/20 Treatment Diagnosis Possible TIA, L arm weakness and tingling sensation Onset Date 02/22/20 Weight Bearing Status Weight Bearing Status Full Weight Bearing M3 PT-IP Subjective Start: 02/23/20 14:09 Freq: NEEDED Status: Active Protocol: Document 02/23/20 14:40 [facility] (Rec: 02/23/20 15:43 [id number]) Subjective Physical Therapy Visit Type Type Initial Evaluation Visit Start Time 14:40 Visit Stop Time 14:54 Total Visit Minutes 14 Number of GAUGER CHIEF Visits 0 Physical Therapy Visit Comments Patient Comments Im feeling normal today Patient Goals To return home. M4 PT-IP Mobility and Gait Start: 02/23/20 14:09 Freq: NEEDED Status: Active Protocol: Document 02/23/20 14:40 [facility] (Rec: 02/23/20 15:43 [id number]) PT-Bed Mobility Assessment Supine to Sit Supine to Sit Independent Scooting Scooting to Edge of Bed Independent PT-Transfer Assessment Sit to and From Stand Sit to and from Stand Independent Equipment Transfer Assistive Device None Orthotic/Prosthetic Devices or Brace: No Transfer Ability Level of Assist Independent Comments Mobility Comments Pt was in bed upon PT arrival. She completed supine to long sit and pivot herself to R EOB independently for neurological assessment. Pt was able to perform single leg stance >5 seconds; marching independently. M5 PT-IP Objective Assessments Start: 02/23/20 14:09 Freq: NEEDED Status: Active Protocol: Document 02/23/20 14:40 (Rec: 02/23/20 15:43 [id number]) Orientation Orientation/Cognition Level of Alertness Alert Orientation Name,Age,Birthday,Month,Date, Year,Day of Week,Place, Situation Language Function Ability No Deficits Noted Safety Awareness Understands Safety Issues Memory Description No Deficits Noted Gross Range of Motion Upper Extremity ROM Assessment Within Functional Limits Lower Extremity ROM Assessment Within Functional Limits Strength Upper Extremity Strength Assessment Within Functional Limits Shoulder 4+/5 Elbow 4+/5 Wrist 4+/5 Hand 4+/5 Lower Extremity Strength Assessment Within Functional Limits Hip 5/5 Knee 5/5 Ankle 5/5 Comments Strength Comments no deficits noted Coordination Assessment Gross Coordination Gross Coordination WNL Assessment Finger to Nose Test Normal Performance Pronation/Supination Test Normal Performance Foot Tapping Test Normal Performance Heel on Luz Test Normal Performance Sensation Assessment Sensation Gross Sensation WNL Light Touch Intact Proprioception (Position) Intact Muscle Tone Muscle Tone WNL Yes M6 PT-IP Treatment Start: 02/23/20 14:09 Freq: NEEDED Status: Active Protocol: Document 02/23/20 14:40 (Rec: 02/23/20 15:43 [id number]) Physical Therapy Treatment Education Education Provided Safety M7 PT-IP Assessment and Plan Start: 02/23/20 14:09 Freq: NEEDED Status: Active Protocol: Document 02/23/20 14:40 (Rec: 02/23/20 15:43 [id number]) PT Summary Assessment and Plan Summary Progress Towards Goals Safe For Discharge Assessment Summary This is an evalution only for this 74 yo female admitted to hospital for possible TIA. Upon assessment, pt presents WFL on visual motor skill, gross and fine motor control, intact sensation, and WFL ROM and strength for both UE and LEs. No deficits noted. Pt also denies any discomfort and felt like returned to baseline. She is ready to be d /c home. Frequency of Treatment Frequency Of Treatment Discharge Recommendations To Nursing Amount of Assist Needed Independent Discharge Recommendations PT Discharge Recommendations Home Transportation Needs at Discharge Private Vehicle
--- NOTE | 2020-02-23 16:35 | P.DS_ITS ---
History of Present Illness History of Present Illness Date Patient Seen: 02/23/20 Chief complaint: pain left arm went numb from head down arm today Narrative: Griselda Haney is a pleasant 74-year-old female who presents with neurologic symptoms that started at 5:00 p.m. on 02/21. She was sitting and watching TV when she started to have nerve pain that usually shoots down her arm. She states that was different this time it included having numbness from the head neck and arm area and lasted for about 1 minutes. She also became nauseous and states that she poorly today she is a diabetic and is under a lot of stress due to continuing to have to work. She also stated that she had diff iculties getting words out and apparently per the ED provider she was confused. She denies difficulty swallowing, chest pain, shortness of breath, vomiting, dysuria, diarrhea or constipation. Patient lives in [facility], PCP is Dr. Strauss. She completed radiation and chemotherapy treatment for breast cancer at [facility]. She states that she had to go in for an MRI and they sent her to [facility] because she states that she is very claustrophobic in small places and rooms. She states that she actually gets claustrophobic sitting in a van. Discharge Providers Provider Date of admission: 02/23/20 02:27 Discharge Date: 02/23/20 Primary care physician: Rowdy Strauss MD Consults: 02/23/20 02:57 Consult to Occupational Therapy Evaluate & Treat Comment: left upper extremity paresthesia Physician Instructions: Evaluate and treat 02/23/20 10:06 Consult to Physical Therapy Evaluate & Treat Comment: Physician Instructions: Evaluate and Treat Discharge provider: Lia Parisi MD Summary Hospital Course Discharge Diagnosis: 1. Probable TIA 2. Left arm pain, question cervical spine disease 3. Anxiety 4. Type 2 diabetes 5. History of Gonzales's esophagitis 6. Depression Hospital Course: Patient was admitted to the hospital following neurological symptoms as described above. She underwent a head MRI and MR angio of the neck which was negative for an acute stroke or carotid disease. Patient had a cardiac echo which showed no wall motion abnormalities, no PFO, no embolic focus. Patient had no further symptoms. Her speech was clear and normal. She had no further arm pain. In no further numbness. She was deemed appropriate for discharge and arrangements were made for her to be discharged home. Patient was instructed follow-up with her primary care provider next week for further evaluation of her left arm pain. Status at Discharge Cognitive/behavioral status at discharge: oriented Functional status at discharge: independent ambulation Overall status at discharge: patient is back to baseline Time Spent with Patient Time spent: Less than 30 minutes Exam Vital Signs (past 8 hours): - 02/23/20 12:38 02/23/20 15:10 Temperature 97.0 F L 98.2 F Pulse Rate 66 75 Respiratory Rate 16 17 Blood Pressure 132/64 114/77 Pulse Oximetry 98 Oxygen Delivery Method Room Air Oxygen Flow Rate 0 Narrative Exam Narrative: Pleasant female in no acute distress HEENT normocephalic atraumatic, sclerae anicteric extraocular muscles are intact no facial asymmetry Speech is fluent Lungs are clear to auscultation Cardiac exam: Regular rate rhythm normal S1-S2 Abdomen soft nontender nondistended Extremity no edema Neuro exam is nonfocal Objective Labs Result Diagrams: 02/23/20 05:21 02/23/20 05:21 Labs: Laboratory Results - last 24 hr 02/22/20 02/22/20 02/22/20 23:38 23:38 23:38 WBC 6.6 RBC 4.59 Hgb 14.2 Hct 40.7 MCV 88.8 MCH 30.9 MCHC 34.8 RDW 13.6 Plt Count 187 Neut % (Auto) 67.7 Lymph % (Auto) 17.4 L [place] % (Auto) 10.1 Eos % (Auto) 3.9 Baso % (Auto) 0.9 Neut # (Auto) 4500 Lymph # (Auto) 1200 [place] # (Auto) 700 Eos # (Auto) 300 Baso # (Auto) 100 PT 11.2 INR 1.0 APTT 29 Sodium 135 L Potassium 4.3 Chloride 102 Carbon Dioxide 26 BUN 17 Creatinine 0.64 Estimated GFR > 60.0 BUN/Creatinine Ratio 26.6 H Glucose 148 H Hemoglobin A1c Calcium 9.8 Total Creatine Kinase 271 H CK-MB (CK-2) 4.75 H CK-MB (CK-2) Rel Index 1.8 Troponin I < 0.012 Triglycerides Cholesterol LDL Cholesterol, Calc HDL Cholesterol U Opiates 300ng/mL cut Ur Oxycodone Screen Urine Methadone Screen Ur Barbiturates Screen U Tricyclic Antidepress Ur Phencyclidine Scrn Ur Amphetamines Screen U Methamphetamines Scrn Ur MDMA Scrn (Ecstasy) U Benzodiazepines Scrn Urine Cocaine Screen U Marijuana (THC) Screen 02/23/20 02/23/20 02/23/20 04:00 05:21 05:21 WBC 7.1 RBC 4.41 Hgb 13.5 Hct 39.1 MCV 88.8 MCH 30.6 MCHC 34.5 RDW 13.9 Plt Count 176 Neut % (Auto) 63.7 Lymph % (Auto) 21.7 L [place] % (Auto) 9.4 Eos % (Auto) 4.4 H Baso % (Auto) 0.8 Neut # (Auto) 4500 Lymph # (Auto) 1500 [place] # (Auto) 700 Eos # (Auto) 300 Baso # (Auto) 100 PT INR APTT Sodium 139 Potassium 4.0 Chloride 104 Carbon Dioxide 25 BUN 16 Creatinine 0.59 Estimated GFR > 60.0 BUN/Creatinine Ratio 27.1 H Glucose 129 H Hemoglobin A1c Calcium 9.7 Total Creatine Kinase CK-MB (CK-2) CK-MB (CK-2) Rel Index Troponin I Triglycerides 265 H Cholesterol 168 LDL Cholesterol, Calc 74 HDL Cholesterol 41 U Opiates 300ng/mL cut Negative Ur Oxycodone Screen Negative Urine Methadone Screen Negative Ur Barbiturates Screen Negative U Tricyclic Antidepress Negative Ur Phencyclidine Scrn Negative Ur Amphetamines Screen Negative U Methamphetamines Scrn Negative Ur MDMA Scrn (Ecstasy) Negative U Benzodiazepines Scrn Negative Urine Cocaine Screen Negative U Marijuana (THC) Screen Negative 02/23/20 02/23/20 05:21 05:21 WBC RBC Hgb Hct MCV MCH MCHC RDW Plt Count Neut % (Auto) Lymph % (Auto) [place] % (Auto) Eos % (Auto) Baso % (Auto) Neut # (Auto) Lymph # (Auto) [place] # (Auto) Eos # (Auto) Baso # (Auto) PT INR APTT Sodium Potassium Chloride Carbon Dioxide BUN Creatinine Estimated GFR BUN/Creatinine Ratio Glucose Hemoglobin A1c 7.1 H Calcium Total Creatine Kinase CK-MB (CK-2) CK-MB (CK-2) Rel Index Troponin I < 0.012 Triglycerides Cholesterol LDL Cholesterol, Calc HDL Cholesterol U Opiates 300ng/mL cut Ur Oxycodone Screen Urine Methadone Screen Ur Barbiturates Screen U Tricyclic Antidepress Ur Phencyclidine Scrn Ur Amphetamines Screen U Methamphetamines Scrn Ur MDMA Scrn (Ecstasy) U Benzodiazepines Scrn Urine Cocaine Screen U Marijuana (THC) Screen Discharge Plan Discharge Plan Patient Disposition: Home Discharge orders & Medications Prescriptions: Continued citalopram 10 mg tablet 20 mg PO DAILY RF: 0 omeprazole 20 mg capsule,delayed release(DR/EC) 20 mg PO DAILY RF: 0 metformin 500 mg Tablet 500 mg PO BID RF: 0 letrozole 2.5 mg Tablet 2.5 mg PO DAILY RF: 0 cyanocobalamin (vitamin B-12) [Vitamin B-12] 1,000 mcg Tablet 1,000 mcg PO DAILY RF: 0 calcium carbonate-vitamin D3 [Calcium 600 + D(3)] 600 mg(1,500mg) -400 unit Tablet 1 tab PO BID RF: 0 cholecalciferol (vitamin D3) [Vitamin D3] 50 mcg (2,000 unit) Capsule 50 mcg PO Q OTHER DAY RF: 0 Probiotic 4X 10-15 mg Tablet,Delayed Release (Dr/Ec) 1 mg PO DAILY RF: 0 Follow up/Referrals: Rowdy Strauss MD [Primary Care Provider] - Diet/Activity/Treatments Diet: Low-sodium and Low-cholesterol Visit Report/Discharge Packet Instructions: Cholesterol-lowering Diet, DI for Muscle Weakness, Low-Sodium Diet Visit Report Forms: Patient Portal/API, Stroke Signs & Symptoms Discharge Data Primary Care Provider: Rowdy Strauss Attending Provider: Hina Deal Admit Date/Time: 02/23/20 02:27 Quality VTE Deep Vein Thrombosis/Pulmonary Embolism Present on Admission: No
--- NOTE | 2020-02-23 17:51 | PC.NURSE ---
Assumed care of pt at 1500. Discharge to home ordered by At 1600. Pt stated she needed to hurry up and leave because her ride was waiting downstairs. Pt verbalized all discharge instructions. Tele and IV removed. Pt dressed and escorted down to ER entrance at 1645 by [employer] with all personal belongings. Pt's friend was no where in sight. Pt stated she wanted to wait at entrance with ER check in staff. [employer] returned to check on pt at 1650 and pt was gone. Check-in staff member stated she was no longer down there. This RN called pt's cell phone and pt confirmed she safely left the hospital in private vehicle driven by her friend.
== END 2020-02-23 16:45 | disposition home or self-care (01) ==
LOC: ED 02-23 01:34 → AC 02-23 02:28
PROVIDERS: Admitting Provider Nurse Practitioner Family; Emergency Provider Emergency Medicine; PCP Internal Medicine; Visit Provider Nurse Practitioner Family
DX: R07.9 Chest pain, unspecified (principal); R20.0 Anesthesia of skin; R11.0 Nausea; K21.9 Gastro-esophageal reflux disease without esophagitis; F41.9 Anxiety disorder, unspecified; E11.9 Type 2 diabetes mellitus without complications; Z79.84 Long term (current) use of oral hypoglycemic drugs; K22.70 Barrett's esophagus without dysplasia; F32.9 Major depressive disorder, single episode, unspecified; Z23 Encounter for immunization
CPT/HCPCS: 36415; 70450; 70548; 70553; 80048; 80061; 80305; 81003; 82550; 82553; 82962; 83036; 84484; 85025; 85610; 85730; 90471; 90656; 93005; 93306; 97161; 97165; 99285; G0378; Q2038

== ENCOUNTER 2020-08-22 17:51 | Emergency (ER) | payer MEDICARE, SELFPAY ==
[2020-02-23 03:02] VITALS: BMI 31.7
[2020-08-22] VITALS (8 sets, daily range): BP systolic 136–148; BP diastolic 64–80; PULSE 75–85; RESP 16–30; TEMP 38.8; O2SAT 89–98; BMI 31.9
--- NOTE | 2020-08-22 17:57 | DI.RAD.S_ITS ---
PROCEDURE: XR HUMERUS RT 2V INDICATIONS: glf,shoulder/arm pain TECHNIQUE: 3 views of the humerus were acquired. COMPARISON: None. FINDINGS: Bones: There is a comminuted, impacted fracture of the proximal humerus. Visualized portions of the ribs and the distal humerus are intact. The glenoid is likely intact. Soft tissues: No suspicious soft tissue calcifications. Wedge-shaped radiopacity is noted within the right mid lung. IMPRESSION: 1. Comminuted impacted proximal humeral fracture. 2. Right pulmonary radiopacity within the mid lung. Differential considerations include aspiration/infection. Short interval followup is recommended with resolution of the patient's symptoms to ensure there is no underlying pulmonary pathology. Dictated by: Preeti Sanches M.D. on 08/22/2020 at 18:55 Approved by: Preeti Sanches M.D. on 08/22/2020 at 18:57
--- NOTE | 2020-08-22 18:11 | DI.RAD.S_ITS ---
PROCEDURE: XR CHEST 1V INDICATIONS: suspected sepsis TECHNIQUE: One view of the chest was acquired. COMPARISON: None. FINDINGS: Surgical changes and devices: None. Lungs and pleura: Wedge-shaped radiopacities are noted within the right mid lung. The lungs are otherwise clear. No pleural effusion or pneumothorax. Mediastinum: Mediastinal contours appear normal. Heart size is normal. Bones and chest wall: No suspicious bony lesions. Overlying soft tissues appear unremarkable. IMPRESSION: Focal right airspace opacities suspicious for aspiration/infection. Short interval followup is recommended with resolution of the patient's symptoms to ensure there is no underlying pulmonary pathology. Dictated by: Preeti Sanches M.D. on 08/22/2020 at 18:55 Approved by: Preeti Sanches M.D. on 08/22/2020 at 18:55
--- NOTE | 2020-08-22 20:38 | ED.FEVER ---
HPI - Fever General Chief Complaint: Fever Stated Complaint: R shoulder pain Time Seen by Provider: 08/22/20 20:37 Source: patient and EMS Mode of arrival: EMS Limitations: no limitations History of Present Illness HPI Narrative: The patient lives in [place], [place]. She went to her mailbox this afternoon, she slipped in loose gravel. She fell on her right shoulder. She arrives now with right shoulder pain. There is no head, neck or spine injury. She has no difficulty breathing. There is no abdominal pain or lower extremity injury. There is no numbness to the right arm. She is right arm dominant. It is noted that she has fever upon arrival. She complains of basically myalgia and weakness, she has had no headache, or sore throat. She has no complaints of cough or dyspnea. She has no GI or symptoms. Related Data Home Medications Medication Instructions Recorded Confirmed citalopram 10 mg tablet 20 mg PO DAILY 06/14/18 02/23/20 omeprazole 20 mg capsule,delayed 20 mg PO DAILY 06/14/18 02/23/20 release Probiotic 4X 1 mg PO DAILY 02/23/20 02/23/20 calcium carbonate-vitamin D3 1 tab PO BID 02/23/20 02/23/20 [Calcium 600 + D(3)] cholecalciferol (vitamin D3) 50 mcg PO Q OTHER DAY 02/23/20 02/23/20 [Vitamin D3] cyanocobalamin (vitamin B-12) 1,000 mcg PO DAILY 02/23/20 02/23/20 [Vitamin B-12] letrozole 2.5 mg PO DAILY 02/23/20 02/23/20 metformin 500 mg PO BID 02/23/20 02/23/20 Previous Rx's Medication Instructions Recorded azithromycin [Zithromax Z-Tono] See Rx Instructions .ROUTE 08/22/20 .COMPLEX #6 tab hydrocodone-acetaminophen [[place]] 1 tab PO Q4-6H #20 tab 08/22/20 Allergies Allergy/AdvReac Type Severity Reaction Status Date / Time Penicillins Allergy Rash Verified 08/22/20 18:06 Review of Systems Review of Systems ROS Unobtainable: All systems reviewed & are unremarkable except as noted in HPI and below Constitutional Constitutional: Denies anorexia, Reports body ache(s), Denies chills, Reports fatigue, Denies fever(s) and Denies headache(s) Eyes Comments: No complain ENT Ears, Nose, Mouth, and Throat: Denies headache(s) and Denies sore throat Cardiovascular Cardiovascular: Denies chest pain, Denies irregular heart rhythm, Denies lightheadedness, Denies palpitations, Denies dyspnea and Denies orthopnea Respiratory Respiratory: Denies cough, Denies dyspnea and Denies wheezing Gastrointestinal Gastrointestinal: Denies abdominal pain, Denies change in bowel habits, Denies diarrhea, Denies nausea and Denies vomiting Genitourinary Genitourinary: Denies dysuria Genitourinary: Denies dysuria Musculoskeletal Comments: Right shoulder pain. No other complaints. Integumentary/Breasts Skin/Breast: Denies rash and Denies wounds Neurologic Neurologic: Reports confusion and Denies headache(s) Comments: No focal weakness or numbness Psychiatric Psychiatric: Denies anxiety and Reports confusion Endocrine Endocrine: Reports fatigue and Denies palpitations Allergic/Immunologic Allergic/Immunologic: Denies wheezing Patient History Medical History Anxiety (Chronic) Gonzales's esophagus with esophagitis (Chronic) Diabetes type 2, controlled (Chronic) History of right breast cancer (Acute) Surgical History H/O mastectomy (Acute) Family History Mother Breast cancer Father Colon cancer Social History household members: family Smoking Status: Never smoker alcohol intake: former Smoking Status: Never smoker alcohol intake frequency: other Substance Use Type: does not use Exam Initial Vital Signs Initial Vital Signs: Vital Signs Temperature 102 F H 08/22/20 18:03 Pulse Rate 85 08/22/20 18:03 Respiratory Rate 16 08/22/20 18:03 Blood Pressure 136/80 08/22/20 18:03 Pulse Oximetry 96 08/22/20 18:03 Const General: cooperative and well developed Nutritional Appearance: well nourished [facility] Head: normocephalic and atraumatic Mouth: oral mucosae normal Throat: posterior oropharynx normal Eyes General: appearance normal, both eyes and all related structures Eyelids: eyelids normal Conjunctivae: conjunctivae normal Sclera: sclerae normal Pupils: PERRL EOM: EOM intact bilaterally Neck Other: Nontender Chest Other: No palpable deformity, no tenderness Resp Auscultation: clear to auscultation bilaterally Cardio Rate: regular rate Rhythm: regular rhythm Heart Sounds: S1 normal, S2 normal, no click, no gallops, no murmurs and no rubs Pulses: normal peripheral pulses GI Inspection: non-distended Palpation: soft, no hepatosplenomegaly, No guarding, No pulsatile mass and No tender Auscultation: normal bowel sounds Back/Spine/Pelvis Back: normal to inspection and No back tenderness Skin General: no rashes or lesions noted and No petechiae Neuro General: patient alert, patient oriented x3, gait normal and no focal motor deficits Speech: speech normal Other: Normal motor and sensory exam of the right arm. Extrem Other: Tenderness over the right proximal humerus without palpable deformity. Significant increase in pain with motion. No tenderness to the right elbow or right hand. The right radial pulse is normal. Extremities are otherwise atraumatic. Psych Mental Status: mental status grossly normal Procedures Orthopedic Splinting/Casting Injury #1: Side: right Upper Extremity Injury Location: upper arm Upper Extremity Immobilizer: sling/shoulder immobilizer Post splinting neuro exam: intact Post splinting vascular exam: intact Placed by: Nursing Course Course Course Narrative: The patient has a right humeral head fracture. The right arm is neurovascular intact. She has been placed in a sling and will be referred ortho. Other than malaise, shows unaware of the fever and illness. A RML pneumonia is discovered. There is no evidence of sepsis. She is treated with Rocephin here in the ER, the discharged with Z-Tono. She preferred to her PCM for recheck in the next 1-2 weeks. Orders Ordered: Discontinued Medications Hydrocodone Bitart/Acetaminophen (Vicodin 5/325 Prepack) 1 bottle MISC SEEINSTR ONE Stop: 08/22/20 22:10 Last Admin: 08/22/20 22:34 Dose: 1 bottle Documented by: ARIANE Ceftriaxone Sodium/Dextrose (Rocephin) 1 gm in 50 mls @ 100 mls/hr IV NOW ONE Stop: 08/22/20 22:29 Last Infusion: 08/22/20 23:32 Dose: 0 mls/hr Documented by: Admin: 08/22/20 22:34 Dose: 100 mls/hr Documented by: ARIANE Morphine Sulfate (Morphine) 2 mg IV NOW ONE Stop: 08/22/20 22:10 Last Admin: 08/22/20 22:40 Dose: 2 mg Documented by: ARIANE Vital Signs Vital signs: Vital Signs - 8 hr 08/22/20 18:03 08/22/20 20:58 08/22/20 21:00 Temperature 102 F H Pulse Rate 85 76 75 Respiratory Rate 16 20 18 Blood Pressure 136/80 148/70 H Pulse Oximetry 96 90 L 89 L 08/22/20 21:30 Temperature Pulse Rate 79 Respiratory Rate 25 H Blood Pressure 138/66 Pulse Oximetry 92 MDM - Fever Lab Data Result diagrams: 08/22/20 20:44 08/22/20 20:44 Labs: Lab Results 08/22/20 08/22/20 08/22/20 Range/Units 20:34 20:44 20:44 WBC 10.4 (4.5-11.0) X10^3/uL RBC 4.24 (4.0-5.2) X10^6/uL Hgb 12.4 (12.0-16.0) g/dL Hct 36.9 (36-46) % MCV 87.0 (80-100) fL MCH 29.2 (26-34) PG MCHC 33.6 (30-36) % RDW 13.7 (11.6-14.8) % Plt Count 198 (150-400) X10^3/uL Neut % (Auto) 83.6 H (50-75) % Lymph % (Auto) 6.2 L (25-40) % Brooke % (Auto) 9.5 (3-14) % Eos % (Auto) 0.1 L (2-4) % Baso % (Auto) 0.6 (0-2) % Neut # (Auto) 8700 H (9755-3311) /uL Lymph # (Auto) 600 L (9359-0091) /uL Brooke # (Auto) 1000 H (0-900) /uL Eos # (Auto) 0 (0-450) /uL Baso # (Auto) 100 (0-100) /uL PT 13.7 H (10.1-12.7) SECONDS INR 1.2 (0.9-1.3) APTT 29 (26.4-36.2) SECONDS Sodium (137-145) mmol/L Potassium (3.4-5.1) mmol/L Chloride (98-107) mmol/L Carbon Dioxide (22-32) mmol/L BUN (7-17) mg/dL Creatinine (0.52-1.04) mg/dL Estimated GFR (>60) mL/min BUN/Creatinine Ratio (6-22) Glucose (80-110) mg/dL Lactate (0.7-2.1) mmol/L Calcium (8.4-10.2) mg/dL Total Bilirubin (0.2-1.3) mg/dL AST (14-36) IU/L ALT (<35) IU/L Alkaline Phosphatase (38-126) U/L Total Protein (6.3-8.2) g/dL Albumin (3.5-5.0) g/dL Globulin (1.7-4.1) g/dL Albumin/Globulin Ratio (1.0-2.8) Lipase (23-300) U/L Procalcitonin (<0.5) ng/mL Urine Color [place] Urine Appearance Sl cloudy Urine pH 5.5 (4.5-8.0) Ur Specific [place] 1.015 (1.000-1.035) Urine Protein 1+ H (Negative) Urine Glucose (UA) Trace H (Negative) g/dL Urine Ketones Trace H (NEGATIVE) Urine Occult Blood Trace-lysed (Negative) Urine Nitrate Negative (Negative) Urine Bilirubin Negative (NEGATIVE) Urine Urobilinogen 0.2 (0.2) E.U./dL Ur Leukocyte Esterase 1+ H (NEGATIVE) Urine RBC None seen (0-5/HPF) Urine WBC 5-10/hpf H (0-5/HPF) Ur Squamous Epith Cells 1-5 /hpf (0-5/HPF) Urine Bacteria None seen (None) Hyaline Casts 1-5/lpf (None) Ur Culture Indicated? Specimen cultured COVID-19 PCR (Negative) 08/22/20 08/22/20 08/22/20 Range/Units 20:44 20:44 20:44 WBC (4.5-11.0) X10^3/uL RBC (4.0-5.2) X10^6/uL Hgb (12.0-16.0) g/dL Hct (36-46) % MCV (80-100) fL MCH (26-34) PG MCHC (30-36) % RDW (11.6-14.8) % Plt Count (150-400) X10^3/uL Neut % (Auto) (50-75) % Lymph % (Auto) (25-40) % Brooke % (Auto) (3-14) % Eos % (Auto) (2-4) % Baso % (Auto) (0-2) % Neut # (Auto) (1920-3191) /uL Lymph # (Auto) (1643-2914) /uL Brooke # (Auto) (0-900) /uL Eos # (Auto) (0-450) /uL Baso # (Auto) (0-100) /uL PT (10.1-12.7) SECONDS INR (0.9-1.3) APTT (26.4-36.2) SECONDS Sodium 129 L (137-145) mmol/L Potassium 3.6 (3.4-5.1) mmol/L Chloride 97 L (98-107) mmol/L Carbon Dioxide 25 (22-32) mmol/L BUN 13 (7-17) mg/dL Creatinine 0.68 (0.52-1.04) mg/dL Estimated GFR > 60.0 (>60) mL/min BUN/Creatinine Ratio 19.1 (6-22) Glucose 244 H (80-110) mg/dL Lactate 1.3 (0.7-2.1) mmol/L Calcium 8.9 (8.4-10.2) mg/dL Total Bilirubin 1.2 (0.2-1.3) mg/dL AST 34 (14-36) IU/L ALT 40 H (<35) IU/L Alkaline Phosphatase 66 (38-126) U/L Total Protein 7.5 (6.3-8.2) g/dL Albumin 4.0 (3.5-5.0) g/dL Globulin 3.5 (1.7-4.1) g/dL Albumin/Globulin Ratio 1.1 (1.0-2.8) Lipase 54 (23-300) U/L Procalcitonin < 0.05 (<0.5) ng/mL Urine Color Urine Appearance Urine pH (4.5-8.0) Ur Specific [place] (1.000-1.035) Urine Protein (Negative) Urine Glucose (UA) (Negative) g/dL Urine Ketones (NEGATIVE) Urine Occult Blood (Negative) Urine Nitrate (Negative) Urine Bilirubin (NEGATIVE) Urine Urobilinogen (0.2) E.U./dL Ur Leukocyte Esterase (NEGATIVE) Urine RBC (0-5/HPF) Urine WBC (0-5/HPF) Ur Squamous Epith Cells (0-5/HPF) Urine Bacteria (None) Hyaline Casts (None) Ur Culture Indicated? COVID-19 PCR (Negative) 08/22/20 Range/Units 20:47 WBC (4.5-11.0) X10^3/uL RBC (4.0-5.2) X10^6/uL Hgb (12.0-16.0) g/dL Hct (36-46) % MCV (80-100) fL MCH (26-34) PG MCHC (30-36) % RDW (11.6-14.8) % Plt Count (150-400) X10^3/uL Neut % (Auto) (50-75) % Lymph % (Auto) (25-40) % Brooke % (Auto) (3-14) % Eos % (Auto) (2-4) % Baso % (Auto) (0-2) % Neut # (Auto) (8137-4837) /uL Lymph # (Auto) (0413-7987) /uL Brooke # (Auto) (0-900) /uL Eos # (Auto) (0-450) /uL Baso # (Auto) (0-100) /uL PT (10.1-12.7) SECONDS INR (0.9-1.3) APTT (26.4-36.2) SECONDS Sodium (137-145) mmol/L Potassium (3.4-5.1) mmol/L Chloride (98-107) mmol/L Carbon Dioxide (22-32) mmol/L BUN (7-17) mg/dL Creatinine (0.52-1.04) mg/dL Estimated GFR (>60) mL/min BUN/Creatinine Ratio (6-22) Glucose (80-110) mg/dL Lactate (0.7-2.1) mmol/L Calcium (8.4-10.2) mg/dL Total Bilirubin (0.2-1.3) mg/dL AST (14-36) IU/L ALT (<35) IU/L Alkaline Phosphatase (38-126) U/L Total Protein (6.3-8.2) g/dL Albumin (3.5-5.0) g/dL Globulin (1.7-4.1) g/dL Albumin/Globulin Ratio (1.0-2.8) Lipase (23-300) U/L Procalcitonin (<0.5) ng/mL Urine Color Urine Appearance Urine pH (4.5-8.0) Ur Specific [place] (1.000-1.035) Urine Protein (Negative) Urine Glucose (UA) (Negative) g/dL Urine Ketones (NEGATIVE) Urine Occult Blood (Negative) Urine Nitrate (Negative) Urine Bilirubin (NEGATIVE) Urine Urobilinogen (0.2) E.U./dL Ur Leukocyte Esterase (NEGATIVE) Urine RBC (0-5/HPF) Urine WBC (0-5/HPF) Ur Squamous Epith Cells (0-5/HPF) Urine Bacteria (None) Hyaline Casts (None) Ur Culture Indicated? COVID-19 PCR Negative (Negative) Imaging Data Chest x-ray: Radiologist's Impression: 78 Lee Galindo MD Find Patient Imaging - Griselda Haney 75 F 1945 ACTIVITY DATE EXAM STATUS AUTHOR 08/22/20 18:11 Signed Preeti Sanches 08/22/20 17:57 [facility]igned [facility] [address] XRay Report Signed Patient: Abida Haney#: [id number] : 1945cct:[id number] Age/Sex: 75 / FDate of Service: 08/22/20 Loc: ED Accession Number: [id number] Procedure: XR chest 1V Ordering Provider: Kareem Barth MD PROCEDURE: XR CHEST 1V INDICATIONS: suspected sepsis TECHNIQUE: One view of the chest was acquired. COMPARISON: None. FINDINGS: Surgical changes and devices: None. Lungs and pleura: Wedge-shaped radiopacities are noted within the right mid lung. The lungs are otherwise clear. No pleural effusion or pneumothorax. Mediastinum: Mediastinal contours appear normal. Heart size is normal. Bones and chest wall: No suspicious bony lesions. Overlying soft tissues appear unremarkable. IMPRESSION: Focal right airspace opacities suspicious for aspiration/infection. Short interval followup is recommended with resolution of the patient's symptoms to ensure there is no underlying pulmonary pathology. Dictated by: Preeti Sanches M.D. on 08/22/2020 at 18:55 Approved by: Preeti Sanches M.D. on 08/22/2020 at 18:55 Right shoulder: Radiologist's Impression: [address] [address] XRay Report Signed Patient: Abida Haney#: [id number] : 1945cct:[id number] Age/Sex: 75 / FDate of Service: 08/22/20 Loc: ED Accession Number: [id number] Procedure: XR humerus RT 2V Ordering Provider: Kareem Barth MD PROCEDURE: XR HUMERUS RT 2V INDICATIONS: glf,shoulder/arm pain TECHNIQUE: 3 views of the humerus were acquired. COMPARISON: None. FINDINGS: Bones: There is a comminuted, impacted fracture of the proximal humerus. Visualized portions of the ribs and the distal humerus are intact. The glenoid is likely intact. Soft tissues: No suspicious soft tissue calcifications. Wedge-shaped radiopacity is noted within the right mid lung. IMPRESSION: 1. Comminuted impacted proximal humeral fracture. 2. Right pulmonary radiopacity within the mid lung. Differential considerations include aspiration/infection. Short interval followup is recommended with resolution of the patient's symptoms to ensure there is no underlying pulmonary pathology. Dictated by: Preeti Sanches M.D. on 08/22/2020 at 18:55 Approved by: Preeti Sanches M.D. on 08/22/2020 at 18:57 ECG Data Attestation: I personally reviewed and interpreted this ECG as follows: (Normal sinus rhythm rate 80 beats per minute. Normal intervals. No ectopy. No acute ST T wave changes. Normal study.) Discharge Plan Departure Patient Disposition: Home Clinical Impression: Community acquired pneumonia of right middle lobe of lung Closed fracture of proximal end of right humerus Qualifiers: Encounter type: initial encounter Fracture morphology: unspecified fracture morphology Qualified Code(s): S42.201A - Unspecified fracture of upper end of right humerus, initial encounter for closed fracture Discharge Date/Time: 08/22/20 23:46 Instructions: DI for Pneumonia -- Adult, Humeral Shaft Fracture Activity Restrictions/Additional Instructions: Keep the sling in place due to the arm fracture. Advil 2 tabs every 6 hours as needed for pain. [place] every 4-6 hours as needed for added pain control. Zithromax for 5 days as prescribed, this is for your pneumonia. Follow-up with your doctor in about 1 week to recheck the pneumonia, return here if worse. Follow-up with Orthopedics, regarding her arm fracture. I will give you contact information, call for appointment. Prescriptions: New azithromycin [Zithromax Z-Tono] 250 mg tablet See Rx Instructions .ROUTE .COMPLEX Qty: 6 RF: 0 hydrocodone-acetaminophen [[place]] 5-325 mg tablet 1 tab PO Q4-6H Qty: 20 RF: 0 No Action citalopram 10 mg tablet 20 mg PO DAILY RF: 0 omeprazole 20 mg capsule,delayed release(DR/EC) 20 mg PO DAILY RF: 0 metformin 500 mg Tablet 500 mg PO BID RF: 0 letrozole 2.5 mg Tablet 2.5 mg PO DAILY RF: 0 cyanocobalamin (vitamin B-12) [Vitamin B-12] 1,000 mcg Tablet 1,000 mcg PO DAILY RF: 0 calcium carbonate-vitamin D3 [Calcium 600 + D(3)] 600 mg(1,500mg) -400 unit Tablet 1 tab PO BID RF: 0 cholecalciferol (vitamin D3) [Vitamin D3] 50 mcg (2,000 unit) Capsule 50 mcg PO Q OTHER DAY RF: 0 Probiotic 4X 10-15 mg Tablet,Delayed Release (Dr/Ec) 1 mg PO DAILY RF: 0 Referrals: Adrian Gallagher MD [Primary Care Provider] - Elliot Redding MD [Physician] -
[2020-08-22 20:42] LABS: Bacteria Urine None Seen; RBC Urine None Seen (0-5/HPF)
[2020-08-22 20:44] LABS: Appearance Urine UA SL CLOUDY; Bilirubin Urine UA NEGATIVE (NEGATIVE); Color Urine UA ORANGE; Glucose Urine UA TRACE g/dL (Negative); Ketones Urine UA TRACE (NEGATIVE); Leukocyte Esterase Urine UA 1+ (NEGATIVE); Nitrite Urine UA NEGATIVE (Negative); Occult Blood Urine UA TRACE-LYSED (Negative); Protein Urine UA 1+ (Negative); Specific Gravity Urine UA 1.015 (1.000-1.035); Urobilinogen Urine UA 0.2 E.U./dL (0.2)
[2020-08-22 20:48] LABS: pH Urine UA 5.5 (4.5-8.0)
[2020-08-22 20:50] LABS: Culture Indicated Urine Specimen Cultured; Hyaline Casts Urine 1-5/LPF; Squamous Epithelial Cell Urine 1-5 /HPF (0-5/HPF); WBC Urine 5-10/HPF (0-5/HPF)
[2020-08-22 20:57] LABS: Add Manual Diff / Slide Review NO; Basophils Absolute Auto 100 /uL (0-100); Basophils Percent Auto 0.6 % (0-2); Eosinophils Absolute Auto 0 /uL (0-450); Eosinophils Percent Auto 0.1 % (2-4); Hematocrit 36.9 % (36-46); Hemoglobin 12.4 g/dL (12.0-16.0); Lymphocytes Absolute Auto 600 /uL (1100-4500); Lymphocytes Percent Auto 6.2 % (25-40); Mean Corpuscular HGB Conc 33.6 % (30-36); Mean Corpuscular Hemoglobin 29.2 PG (26-34); Monocytes Absolute Auto 1000 /uL (0-900); Monocytes Percent Auto 9.5 % (3-14); Neutrophils Absolute Auto 8700 /uL (1500-7000); Neutrophils Percent Auto 83.6 % (50-75); Platelet Count 198 X10^3/uL (150-400); Red Blood Cell Count 4.24 X10^6/uL (4.0-5.2); Red Cell Distribution Width 13.7 % (11.6-14.8); White Blood Cell Count 10.4 X10^3/uL (4.5-11.0)
--- NOTE | 2020-08-22 21:00 | PC.NURSE ---
Pt states that for the past few days she has felt weaker and not herself. No UTI or COVID symptoms. Fever noted here today when pt came to be evaluated after falling into her mailbox injuring her R upper arm. When pt arrived pt had had an episode of diarrhea that she was unable to clean herself up.
[2020-08-22 21:10] LABS: INR 1.2 (0.9-1.3); Prothrombin Time 13.7 SECONDS (10.1-12.7)
[2020-08-22 21:13] LABS: PTT Partial Thromboplastin Tim 29 SECONDS (26.4-36.2)
[2020-08-22 21:19] LABS: Lactate (Lactic Acid) 1.3 mmol/L (0.7-2.1)
--- NOTE | 2020-08-22 21:19 | PC.NURSE ---
Sister Xi Bo [phone]
[2020-08-22 21:25] LABS: COVID19 -Nasal RAPID Negative (Negative)
[2020-08-22 21:30] LABS: Alanine Aminotransferase 40 IU/L (<35); Albumin Globulin Ratio 1.1 (1.0-2.8); Alkaline Phosphatase 66 U/L (38-126); Aspartate Aminotransferase 34 IU/L (14-36); BUN Creatinine Ratio 19.1 (6-22); Bilirubin Total 1.2 mg/dL (0.2-1.3); Blood Urea Nitrogen 13 mg/dL (7-17); Calcium 8.9 mg/dL (8.4-10.2); Carbon Dioxide 25 mmol/L (22-32); Chloride 97 mmol/L (98-107); Estimated Glomerular Filt Rate > 60.0 mL/min (>60); Globulin 3.5 g/dL (1.7-4.1); Glucose 244 mg/dL (80-110); HEMOLYSIS < 15 (0-50); Lipase 54 U/L (23-300); Potassium 3.6 mmol/L (3.4-5.1); Sodium 129 mmol/L (137-145); Total Protein 7.5 g/dL (6.3-8.2)
[2020-08-22 21:31] LABS: Procalcitonin < 0.05 ng/mL (<0.5)
[2020-08-22] MEDS: CEFTRIAXONE 1 GM/50 ML FROZ.PIGGY IV (22:34)
[2020-08-22] MEDS: HYDROCODONE/ACET 5/325 PREPACK 1 BOTTLE MISC (22:34)
[2020-08-22] MEDS: MORPHINE 2 MG/ML INJ IV (22:40)
[2020-08-24 03:59] LABS: Enterococcus species Not Detected (Not Detect); Listeria monocytogenes Not Detected (Not Detect); Staphylococcus species Not Detected (Not Detect); Streptococcus agalactiae (Gr B Not Detected (Not Detect); Streptococcus pneumonia Not Detected (Not Detect); Streptococcus pyogenes (Gr A) Not Detected (Not Detect); Streptococcus species Not Detected (Not Detect)
[2020-08-24 04:00] LABS: Acinetobacter baumannii Not Detected (Not Detect); Candida albicans Not Detected (Not Detect); Candida glabrata Not Detected (Not Detect); Candida krusei Not Detected (Not Detect); Candida parapsilosis Not Detected (Not Detect); Candida tropicalis Not Detected (Not Detect); E. coli Not Detected (Not Detect); Enterobacter cloacae complex Not Detected (Not Detect); Enterobacteriaceae species Not Detected (Not Detect); Haemophilus influenzae Not Detected (Not Detect); Neisseria meningitidis Not Detected (Not Detect); Proteus species Not Detected (Not Detect); Pseudomonas aeruginosa Not Detected (Not Detect); Serratia marcescens Not Detected (Not Detect)
== END 2020-08-22 23:46 | disposition home or self-care (01) ==
PROVIDERS: Emergency Medicine; Emergency Provider Emergency Medicine; PCP Family Medicine
DX: S42.201A Unspecified fracture of upper end of right humerus, initial encounter for closed fracture (principal); J18.9 Pneumonia, unspecified organism; W19.XXXA Unspecified fall, initial encounter
CPT/HCPCS: 36415; 71045; 73060; 80053; 81001; 83605; 83690; 84145; 85025; 85610; 85730; 87040; 87086; 87150; 87205; 87635; 93005; 96365; 96375; 99284; J2270

== ENCOUNTER 2020-08-24 09:40 | Emergency (ER) | payer MEDICARE, SELFPAY ==
[2020-02-23 03:02] VITALS: BMI 31.7
[2020-08-24] VITALS (15 sets, daily range): BP systolic 112–132; BP diastolic 54–66; PULSE 66–78; RESP 11–25; TEMP 36.2–37.7; O2SAT 92–96
--- NOTE | 2020-08-24 10:06 | DI.RAD.S_ITS ---
PROCEDURE: XR CHEST 2V INDICATIONS: recent pne, fever, confusion TECHNIQUE: 2 views of the chest were acquired. COMPARISON: [facility], , XR CHEST 1V, 08/22/2020, 18:25. FINDINGS: Surgical changes and devices: None. Lungs and pleura: Focal opacity noted in the right middle lobe. No pleural effusions or pneumothorax. Mediastinum: Mediastinal contours are normal. Heart size is normal. Bones and chest wall: No suspicious bony abnormalities. Soft tissues appear unremarkable. IMPRESSION: Right middle lobe pneumonia slight increased in size compared to the prior examination. Dictated by: Renetta De Jesus MD, PhD on 08/24/2020 at 10:37 Approved by: Renetta De Jesus MD, PhD on 08/24/2020 at 10:39
[2020-08-24 10:16] LABS: INR 1.2 (0.9-1.3); Prothrombin Time 14.2 SECONDS (10.1-12.7)
[2020-08-24 10:18] LABS: Add Manual Diff / Slide Review NO; Basophils Absolute Auto 0 /uL (0-100); Basophils Percent Auto 0.3 % (0-2); Eosinophils Absolute Auto 0 /uL (0-450); Eosinophils Percent Auto 0.3 % (2-4); Hematocrit 34.5 % (36-46); Hemoglobin 11.8 g/dL (12.0-16.0); Lymphocytes Absolute Auto 600 /uL (1100-4500); Lymphocytes Percent Auto 6.1 % (25-40); Mean Corpuscular HGB Conc 34.2 % (30-36); Mean Corpuscular Hemoglobin 29.6 PG (26-34); Mean Corpuscular Volume 86.6 fL (80-100); Monocytes Absolute Auto 1200 /uL (0-900); Monocytes Percent Auto 12.1 % (3-14); Neutrophils Absolute Auto 8100 /uL (1500-7000); Neutrophils Percent Auto 81.2 % (50-75); Platelet Count 205 X10^3/uL (150-400); Red Blood Cell Count 3.98 X10^6/uL (4.0-5.2); Red Cell Distribution Width 13.5 % (11.6-14.8); White Blood Cell Count 9.9 X10^3/uL (4.5-11.0)
[2020-08-24 10:19] LABS: PTT Partial Thromboplastin Tim 28 SECONDS (26.4-36.2)
[2020-08-24 10:23] LABS: Alanine Aminotransferase 33 IU/L (<35); Albumin 3.9 g/dL (3.5-5.0); Albumin Globulin Ratio 1.1 (1.0-2.8); Alkaline Phosphatase 61 U/L (38-126); Aspartate Aminotransferase 28 IU/L (14-36); BUN Creatinine Ratio 22.2 (6-22); Blood Urea Nitrogen 16 mg/dL (7-17); Calcium 9.1 mg/dL (8.4-10.2); Carbon Dioxide 27 mmol/L (22-32); Chloride 96 mmol/L (98-107); Estimated Glomerular Filt Rate > 60.0 mL/min (>60); Globulin 3.4 g/dL (1.7-4.1); Glucose 209 mg/dL (80-110); HEMOLYSIS < 15 (0-50); Lipase 52 U/L (23-300); Potassium 3.5 mmol/L (3.4-5.1); Sodium 129 mmol/L (137-145); Total Protein 7.3 g/dL (6.3-8.2)
[2020-08-24 10:34] LABS: Lactate (Lactic Acid) 1.3 mmol/L (0.7-2.1)
--- NOTE | 2020-08-24 11:07 | ED.AMS ---
HPI - Altered Mental Status General Chief Complaint: Fever Stated Complaint: Still sick after last ER visit. Not getting better Time Seen by Provider: 08/24/20 09:51 Source: patient Mode of arrival: Wheelchair Limitations: no limitations History of Present Illness HPI narrative: This is a 75-year-old female who states she still not improving after her last ER visit. She was here on August 22 after having a slip and fall at her mailbox. She states she slipped on the gravel and fell she did hit her, she states she had her face on the mailbox and then fell backwards but only hit her head lightly. She is not on any anticoagulation. Patient had a right closed proximal and humeral fracture and was noted in her stand emergency department she had a fever, she had a chest x-ray and evaluation with labs and was noted to have pneumonia. COVID was negative. Patient since then had returned home she has not started antibiotics, she has not been taking any of her pain medication. She states she feels sort of off. She states that they filled her antibiotics last night, and then she did not take her antibiotics because they did not give her any water. She is alert oriented and appropriate in the department but states that she just feels a little off. She has also felt jittery and felt a little off balance. She states she has been ambulating around the house. She denies any new fevers or chills. She has had a mild cough that is been nonproductive. No chest pain or pressure some occasional shortness of breath. No nausea, no vomiting no other GI or urinary symptoms. No swelling of her extremity. Patient has also not been taking her home medications which include metformin, omeprazole and citalopram. She states she is also on an oral medication for her breast cancer and is out of the other treatment phase. She denies any prior history of MIs, hypertension or dyslipidemia. She denies any anticoagulation. Dr. Barrett is her primary care. Related Data Home Medications Medication Instructions Recorded Confirmed citalopram 10 mg tablet 20 mg PO DAILY 06/14/18 02/23/20 omeprazole 20 mg capsule,delayed 20 mg PO DAILY 06/14/18 02/23/20 release Probiotic 4X 1 mg PO DAILY 02/23/20 02/23/20 calcium carbonate-vitamin D3 1 tab PO BID 02/23/20 02/23/20 [Calcium 600 + D(3)] cholecalciferol (vitamin D3) 50 mcg PO Q OTHER DAY 02/23/20 02/23/20 [Vitamin D3] cyanocobalamin (vitamin B-12) 1,000 mcg PO DAILY 02/23/20 02/23/20 [Vitamin B-12] letrozole 2.5 mg PO DAILY 02/23/20 02/23/20 metformin 500 mg PO BID 02/23/20 02/23/20 Previous Rx's Medication Instructions Recorded azithromycin [Zithromax Z-Tono] See Rx Instructions .ROUTE 08/22/20 .COMPLEX #6 tab hydrocodone-acetaminophen [[place]] 1 tab PO Q4-6H #20 tab 08/22/20 Allergies Allergy/AdvReac Type Severity Reaction Status Date / Time Penicillins Allergy Rash Verified 08/22/20 18:06 Review of Systems Review of Systems ROS Unobtainable: All systems reviewed & are unremarkable except as noted in HPI and below Patient History Medical History Anxiety (Chronic) Gonzales's esophagus with esophagitis (Chronic) Diabetes type 2, controlled (Chronic) History of right breast cancer (Acute) Surgical History H/O mastectomy (Acute) Family History Mother Breast cancer Father Colon cancer Social History household members: family Smoking Status: Never smoker alcohol intake: former Smoking Status: Never smoker alcohol intake frequency: other Substance Use Type: does not use Exam Narrative Exam Narrative: GEN: well nourished, well appearing female, alert and oriented x 3, patient appears to be in mild distress. HEENT: Atraumatic, pupils are equal round reactive to light, extraocular movements are intact, nares are clear. HEART: Regular rate and rhythm without murmur, clicks, rubs. LUNGS:Lungs clear to auscultation, no wheezes, rales, crackles, chest moves symmetrically, no tachypnea accessory muscle use. Speaks in full sentences ABD:bowel sounds normal, soft, non-tender, no guarding, rebound, rigidity, no masses noted, no hepatosplenomegaly :No CVA tenderness. MSCL: Non-tender, no muscle atrophy, patient's right upper extremity is in a sling. 2+ pulses bilaterally in upper and lower extremities. Normal range of motion in all other extremities. NEURO:CN 2-12 intact, sensation normal. Initial Vital Signs Initial Vital Signs: Vital Signs Temperature 99.8 F H 08/24/20 09:45 Pulse Rate 78 08/24/20 09:45 Respiratory Rate 24 08/24/20 09:45 Blood Pressure 119/59 L 08/24/20 09:45 Pulse Oximetry 94 08/24/20 09:45 Scores GCS Adam coma scale eye opening: Spontaneous Adam coma scale verbal response: Orientated [employer] coma scale motor response: Obey commands Adam coma scale total score: 15 Course Orders Ordered: ED Orders 08/24/20 09:27 Lactate (Lactic Acid) Stat 08/24/20 09:57 Complete Blood Count AUTO DIFF Stat Comprehensive Metabolic Panel Stat Lipase Stat Partial Thromboplastin Time Stat Procalcitonin Stat Prothrombin Time INR Stat 08/24/20 10:01 RT Consult Eval and Treat Now 08/24/20 10:02 EKG-12 Lead Stat 08/24/20 10:06 Chest [XR chest 2V] Stat 08/24/20 10:45 Blood Culture Stat 08/24/20 11:06 CT head/brain wo con Stat 08/24/20 11:42 Consult to ASSOCIATE SCIENTIST - [employer] Worker Stat Discontinued Medications Hydrocodone Bitart/Acetaminophen ([place] 5/325) 1 tab PO NOW ONE Stop: 08/24/20 11:28 Last Admin: 08/24/20 11:32 Dose: 1 tab Documented by: DEXTER Levofloxacin (Levaquin) 750 mg in 150 mls @ 100 mls/hr IV NOW ONE Stop: 08/24/20 12:36 Last Infusion: 08/24/20 13:20 Dose: 0 mls/hr Documented by: Admin: 08/24/20 11:31 Dose: 100 mls/hr Documented by: DEXTER Sodium Chloride (Normal Saline 0.9%) 1,000 mls @ 1,000 mls/hr IV BOLUS ONE Stop: 08/24/20 12:06 Last Infusion: 08/24/20 13:20 Dose: 0 mls/hr Documented by: Admin: 08/24/20 11:31 Dose: 1,000 mls/hr Documented by: DEXTER Ondansetron HCl (Zofran) 4 mg IV NOW ONE Stop: 08/24/20 11:29 Last Admin: 08/24/20 11:32 Dose: 4 mg Documented by: DEXTER Reevaluation(s) Reevaluation #1: Patient is feeling much better, she was seen by social work and patient does not appear to have any barriers to getting her medications in seems to be safe at home. Time: 13:31 Vital Signs Vital signs: Vital Signs - 8 hr 08/24/20 10:21 08/24/20 10:37 08/24/20 11:00 Temperature Pulse Rate 77 74 75 Respiratory Rate 22 22 Blood Pressure 122/56 L Pulse Oximetry 93 94 96 08/24/20 11:23 08/24/20 11:30 08/24/20 11:45 Temperature Pulse Rate 74 72 77 Respiratory Rate 15 25 H Blood Pressure 126/60 121/57 L 122/57 L Pulse Oximetry 95 94 92 08/24/20 12:00 08/24/20 12:15 08/24/20 12:30 Temperature Pulse Rate 75 73 71 Respiratory Rate 25 H 17 11 L Blood Pressure 124/59 L 112/54 L 124/60 Pulse Oximetry 92 93 94 08/24/20 12:45 08/24/20 13:00 08/24/20 13:07 Temperature 97.6 F 97.1 F L Pulse Rate 72 69 Respiratory Rate 20 15 Blood Pressure 132/66 122/58 L Pulse Oximetry 93 95 08/24/20 13:15 08/24/20 13:30 Temperature Pulse Rate 66 66 Respiratory Rate 18 22 Blood Pressure 114/57 L 116/56 L Pulse Oximetry 92 96 MDM - Altered Mental Status Lab Data Attestation: I reviewed the patient's lab results. Result diagrams: 08/24/20 09:57 08/24/20 09:57 Labs: Lab Results 08/24/20 08/24/20 08/24/20 Range/Units 09:27 09:57 09:57 WBC 9.9 (4.5-11.0) X10^3/uL RBC 3.98 L (4.0-5.2) X10^6/uL Hgb 11.8 L (12.0-16.0) g/dL Hct 34.5 L (36-46) % MCV 86.6 (80-100) fL MCH 29.6 (26-34) PG MCHC 34.2 (30-36) % RDW 13.5 (11.6-14.8) % Plt Count 205 (150-400) X10^3/uL Neut % (Auto) 81.2 H (50-75) % Lymph % (Auto) 6.1 L (25-40) % Barber % (Auto) 12.1 (3-14) % Eos % (Auto) 0.3 L (2-4) % Baso % (Auto) 0.3 (0-2) % Neut # (Auto) 8100 H (3846-2728) /uL Lymph # (Auto) 600 L (8151-1906) /uL Barber # (Auto) 1200 H (0-900) /uL Eos # (Auto) 0 (0-450) /uL Baso # (Auto) 0 (0-100) /uL PT 14.2 H (10.1-12.7) SECONDS INR 1.2 (0.9-1.3) APTT 28 (26.4-36.2) SECONDS Sodium (137-145) mmol/L Potassium (3.4-5.1) mmol/L Chloride (98-107) mmol/L Carbon Dioxide (22-32) mmol/L BUN (7-17) mg/dL Creatinine (0.52-1.04) mg/dL Estimated GFR (>60) mL/min BUN/Creatinine Ratio (6-22) Glucose (80-110) mg/dL Lactate 1.3 (0.7-2.1) mmol/L Calcium (8.4-10.2) mg/dL Total Bilirubin (0.2-1.3) mg/dL AST (14-36) IU/L ALT (<35) IU/L Alkaline Phosphatase (38-126) U/L Total Protein (6.3-8.2) g/dL Albumin (3.5-5.0) g/dL Globulin (1.7-4.1) g/dL Albumin/Globulin Ratio (1.0-2.8) Lipase (23-300) U/L Procalcitonin (<0.5) ng/mL 11/06/20 11/06/20 Range/Units 09:57 09:57 WBC (4.5-11.0) X10^3/uL RBC (4.0-5.2) X10^6/uL Hgb (12.0-16.0) g/dL Hct (36-46) % MCV (80-100) fL MCH (26-34) PG MCHC (30-36) % RDW (11.6-14.8) % Plt Count (150-400) X10^3/uL Neut % (Auto) (50-75) % Lymph % (Auto) (25-40) % Barber % (Auto) (3-14) % Eos % (Auto) (2-4) % Baso % (Auto) (0-2) % Neut # (Auto) (3424-3246) /uL Lymph # (Auto) (5539-2994) /uL Barber # (Auto) (0-900) /uL Eos # (Auto) (0-450) /uL Baso # (Auto) (0-100) /uL PT (10.1-12.7) SECONDS INR (0.9-1.3) APTT (26.4-36.2) SECONDS Sodium 129 L (137-145) mmol/L Potassium 3.5 (3.4-5.1) mmol/L Chloride 96 L (98-107) mmol/L Carbon Dioxide 27 (22-32) mmol/L BUN 16 (7-17) mg/dL Creatinine 0.72 (0.52-1.04) mg/dL Estimated GFR > 60.0 (>60) mL/min BUN/Creatinine Ratio 22.2 H (6-22) Glucose 209 H (80-110) mg/dL Lactate (0.7-2.1) mmol/L Calcium 9.1 (8.4-10.2) mg/dL Total Bilirubin 1.0 (0.2-1.3) mg/dL AST 28 (14-36) IU/L ALT 33 (<35) IU/L Alkaline Phosphatase 61 (38-126) U/L Total Protein 7.3 (6.3-8.2) g/dL Albumin 3.9 (3.5-5.0) g/dL Globulin 3.4 (1.7-4.1) g/dL Albumin/Globulin Ratio 1.1 (1.0-2.8) Lipase 52 (23-300) U/L Procalcitonin 0.10 (<0.5) ng/mL Imaging Data Chest x-ray: Radiologist's Impression: [address] [address] XRay Report Signed Patient: Griselda Haney LMR#: [id number] : 1945cct:[id number] Age/Sex: 75 / FDate of Service: 08/24/20 Loc: ED Accession Number: [id number] Procedure: XR chest 2V Ordering Provider: Nicolasa Solorio D.O. PROCEDURE: XR CHEST 2V INDICATIONS: recent pne, fever, confusion TECHNIQUE: 2 views of the chest were acquired. COMPARISON: [facility], , XR CHEST 1V, 08/22/2020, 18:25. FINDINGS: Surgical changes and devices: None. Lungs and pleura: Focal opacity noted in the right middle lobe. No pleural effusions or pneumothorax. Mediastinum: Mediastinal contours are normal. Heart size is normal. Bones and chest wall: No suspicious bony abnormalities. Soft tissues appear unremarkable. IMPRESSION: Right middle lobe pneumonia slight increased in size compared to the prior examination. Dictated by: Renetta De Jesus MD, PhD on 08/24/2020 at 10:37 Approved by: Renetta De Jesus MD, PhD on 08/24/2020 at 10:39 CT scan - head: Radiologist's Impression: Griselda Haney L 75 F [address] [address] [address] Scan Report Signed Patient: Griselda Haeny LMR#: [id number] : 6Acct:[id number] Age/Sex: 75 / FDate of Service: 08/24/20 Loc: ED Accession Number: [id number] Procedure: CT head/brain wo con Ordering Provider: Nicolasa Solorio D.O. PROCEDURE: CT HEAD/BRAIN WO CON INDICATIONS: fall several days ago, pna, feels off. TECHNIQUE: Noncontrast 4.5 mm thick angled axial sections acquired from the foramen magnum to the vertex, with coronal and sagittal reformats. For radiation dose reduction, the following was used: automated exposure control, adjustment of mA and/or kV according to patient size. COMPARISON: [facility], MR, MR STROKE, 02/23/2020, 9:51. [facility], CT, CT HEAD/BRAIN WO CON, 02/22/2020, 23:34. FINDINGS: Image quality: Excellent. CSF spaces: Basal cisterns are patent. No extra-axial fluid collections. The ventricles are symmetric in size and shape. Brain: No intracranial bleeds or masses. There is mild cerebral volume loss for age, with resultant ventricular and sulcal prominence. There are mild periventricular and deep white matter chronic small vessel ischemic changes. There is intracranial internal carotid artery atherosclerosis. Skull and face: Calvarium and visualized facial bones appear intact, without suspicious lesions. Sinuses: There is a small right maxillary sinus mucous retention cyst. The mastoids are clear. IMPRESSION: 1. No acute intracranial abnormalities. 2. Cerebral volume loss and chronic microvascular ischemic changes. Dictated by: Magdi Bruno M.D. on 08/24/2020 at 11:34 Approved by: Magdi Bruno M.D. on 08/24/2020 at 11:37 ECG Data Attestation: I personally reviewed and interpreted this ECG as follows: Interpretation: Seventy-seven rate, P are 152 QRS is 72 and QTC of 450. No ST elevation depression noted. [facility] [place] Narrative Medical decision making narrative: Patient comes in her chest x-ray shows worsening pneumonia, she also has some hyponatremia with a sodium 129, she has not been taking any narcotics or other medications. Patient head CT was negative, suspect that she is worsening secondary to her untreated pneumonia. She does not appear to be septic at this time. We did discuss it is important to fully treat her pneumonia which she understands Discharge Plan Departure Patient Disposition: Home Clinical Impression: Pneumonia, Closed right humeral fracture, Hyponatremia Discharge Date/Time: 08/24/20 13:50 Activity Restrictions/Additional Instructions: Take your antibiotics until they are completely gone. Make sure your taking oral antibiotics daily. Continue pain medications as prescribed Your sodium level is low today, this needs to be re-evaluated in the next week, follow up with her physician for recheck. Return to the ER for persistent fevers, lightheadedness or passing out, new chest pain or shortness of breath, new swelling in your extremities, new weakness numbness or other new or concerning symptoms. Prescriptions: No Action citalopram 10 mg tablet 20 mg PO DAILY RF: 0 omeprazole 20 mg capsule,delayed release(DR/EC) 20 mg PO DAILY RF: 0 metformin 500 mg Tablet 500 mg PO BID RF: 0 letrozole 2.5 mg Tablet 2.5 mg PO DAILY RF: 0 cyanocobalamin (vitamin B-12) [Vitamin B-12] 1,000 mcg Tablet 1,000 mcg PO DAILY RF: 0 calcium carbonate-vitamin D3 [Calcium 600 + D(3)] 600 mg(1,500mg) -400 unit Tablet 1 tab PO BID RF: 0 cholecalciferol (vitamin D3) [Vitamin D3] 50 mcg (2,000 unit) Capsule 50 mcg PO Q OTHER DAY RF: 0 Probiotic 4X 10-15 mg Tablet,Delayed Release (Dr/Ec) 1 mg PO DAILY RF: 0 azithromycin [Zithromax Z-Tono] 250 mg tablet See Rx Instructions .ROUTE .COMPLEX Qty: 6 RF: 0 hydrocodone-acetaminophen [[place]] 5-325 mg tablet 1 tab PO Q4-6H Qty: 20 RF: 0 Referrals: Adrian Gallagher MD [Primary Care Provider] -
[2020-08-24] MEDS: levoFLOXacin 750 MG/150 ML PIGGYBACK 100 MG IV (11:31)
[2020-08-24] MEDS: SODIUM CHLORIDE 0.9% 1,000 ML 1000 ML IV (11:31)
[2020-08-24] MEDS: ONDANSETRON 4 MG/2 ML INJ IV (11:32)
[2020-08-24] MEDS: HYDROCODONE/ACET 5/325 TABLET 1 TAB PO (11:32)
--- NOTE | 2020-08-24 12:27 | PC.NURSE ---
RT contacted to work with pt on IS. Pt taking small, shallow breaths and o2 says low 90's.
--- NOTE | 2020-08-24 13:09 | CM.SWNOTE ---
SFDC DEVELOPER note [employer] DEVELOPER consult requested for patient. Patient is a 75 y/o female with 2 ED visits in past 3 days. Patient presented to ED on 08/22 after a fall in which she broke her shoulder. While in the ED, it was found that patient had pneumonia. Patient presents to ED today with with reported worsening of symptoms and feeling off. Patient reports that her prescriptions for pneumonia were not filled by her sister after initial visit, and that patient did not take the medication after they were filled yesterday. Patient reports that she is feeling better after receiving fluids and states she is feeling clearer than when she came in. Patient reports she doesn't usually rely on her sister for tasks such as filling meds, and informs SFDC DEVELOPER that she has coordinated tasks related to medications and errands with a friend who she feels is reliable. Patient reports she is experiencing some pain with her shoulder injury, but states she has no difficulty navigating her home and is not in need of any additional help there at this time. Patient reports she has already scheduled an appointment with her primary care provider and is planning to follow up with an orthopedic surgeon once the pneumonia clears up. SFDC DEVELOPER updates Dr. Solorio on conversation. No additional social work intervention requested by patient at this time. JORGE Malave
== END 2020-08-24 13:50 | disposition home or self-care (01) ==
PROVIDERS: Emergency Provider Emergency Medicine; PCP Family Medicine
DX: J18.9 Pneumonia, unspecified organism (principal); E87.1 Hypo-osmolality and hyponatremia; S42.301A Unspecified fracture of shaft of humerus, right arm, initial encounter for closed fracture; W19.XXXA Unspecified fall, initial encounter; R50.9 Fever, unspecified
CPT/HCPCS: 36415; 70450; 71046; 80053; 83605; 83690; 84145; 85025; 85610; 85730; 87040; 93005; 96365; 96366; 96375; 99285; J1956; J2405

== ENCOUNTER → 2021-04-05 11:46 | Outpatient (CLI) | payer MEDICARE, SELFPAY ==
[2020-02-23 03:02] VITALS: BMI 31.7
--- NOTE | 2021-04-05 | DI.MRI.S_ITS ---
PROCEDURE: MR SHOULDER RT WO CON INDICATIONS: Other displaced fracture of upper end of right hum TECHNIQUE: Noncontrast oblique coronal T2 fast spin echo with fat saturation, oblique sagittal T1 spin echo and T2 fast spin echo with fat saturation, axial T1 spin echo and T2 fast spin echo with fat saturation through the shoulder. COMPARISON: [facility], CR, XR HUMERUS RT 2V, 08/22/2020, 18:25. [facility] [place], CR, XR SHOULDER 2+ VIEWS RIGHT, 03/27/2021, 11:05. FINDINGS: Rotator cuff: Small full-thickness tear of the supraspinatus tendon measuring 8 mm in the AP dimension as seen on sagittal pulse sequences. There is background supraspinatus tendinopathy and thickening. Infraspinatus tendinopathy and partial-thickness bursal and articular sided tear. Teres minor tendinopathy otherwise grossly intact. Subscapularis thickening and intrasubstance tendinopathic signal changes. Atrophy of the supraspinatus and infraspinatus muscles.. Bones and bursae: Redemonstrated fracture of the humeral head and neck. There appears to be partial bridging ossification however this could be better assessed with dedicated CT as clinically necessary.. Comminuted fracture lines are still present with T2 hyperintense appearance. Moderate acromioclavicular joint degeneration. Acromion demonstrates conventional anatomy, without an os acromiale. Trace subacromial-subdeltoid bursitis. Capsule and soft tissues: Labrum: Marked blunting of the anteroinferior segment and amorphous intrasubstance signal changes. There is frayed appearance of the posterior and superior labrum.. Biceps tendon: Not well seen and may be ruptured versus severe tendinopathy. Rotator interval: Complete obliteration of the subcoracoid fat signal intensity. Coracohumeral ligament: Not well seen potentially from chronic sprain/rupture IMPRESSION: Redemonstrated fracture of the humeral head and neck, with possible mild partial bridging ossification although prominent comminuted fracture lines are still visible. Further evaluation with dedicated CT could be performed as clinically necessary Small full-thickness tear of the supraspinatus tendon. Infraspinatus tendinopathy with partial-thickness bursal and articular sided tear. Atrophy of the supraspinatus and infraspinatus muscles. Trace subacromial-subdeltoid bursitis Ill-defined labral tear, versus advanced degeneration, as detailed above. Long head biceps tendon not well seen and may be ruptured versus severe tendinopathy. Dictated by: Stanley Deal M.D. on 04/05/2021 at 12:58 Approved by: Stanley Deal M.D. on 04/05/2021 at 13:12
== END ==
PROVIDERS: PCP Family Medicine; Referring Provider Orthopaedic Surgery; Visit Provider Orthopaedic Surgery
DX: S42.291A Other displaced fracture of upper end of right humerus, initial encounter for closed fracture (principal); S46.011A Strain of muscle(s) and tendon(s) of the rotator cuff of right shoulder, initial encounter; X58.XXXA Exposure to other specified factors, initial encounter
CPT/HCPCS: 73221

== ENCOUNTER → 2021-04-30 13:16 | Outpatient (CLI) | payer MEDICARE, SELFPAY ==
[2020-02-23 03:02] VITALS: BMI 31.7
[2021-04-30 15:47] LABS: BUN Creatinine Ratio 23.5 (6-22); Blood Urea Nitrogen 16 mg/dL (7-17); Calcium 9.3 mg/dL (8.4-10.2); Carbon Dioxide 26 mmol/L (22-32); Chloride 104 mmol/L (98-107); Estimated Glomerular Filt Rate > 60.0 mL/min (>60); Glucose 134 mg/dL (80-110); HEMOLYSIS < 15 (0-50); Potassium 4.1 mmol/L (3.4-5.1); Sodium 137 mmol/L (137-145)
[2021-04-30 15:48] LABS: Hemoglobin A1C% w Est Avg Glu 6.9 % (4.0-6.0)
== END ==
PROVIDERS: PCP Family Medicine; Referring Provider Orthopaedic Surgery; Visit Provider Orthopaedic Surgery
DX: Z01.818 Encounter for other preprocedural examination (principal); R73.9 Hyperglycemia, unspecified; Z01.812 Encounter for preprocedural laboratory examination
CPT/HCPCS: 36415; 80048; 83036; 93005; 93010

== ENCOUNTER → 2021-05-19 10:46 | Outpatient (CLI) | payer MEDICARE, SELFPAY ==
[2020-02-23 03:02] VITALS: BMI 31.7
[2021-05-19 11:18] LABS: COVID19 -Nasal RAPID Negative (Negative)
== END ==
PROVIDERS: PCP Family Medicine; Visit Provider Student in an Organized Health Care Education/Training Program
DX: Z01.812 Encounter for preprocedural laboratory examination (principal); Z20.822 Contact with and (suspected) exposure to COVID-19
CPT/HCPCS: 87635

== ENCOUNTER 2021-05-20 07:52 | Inpatient (IN) | payer MEDICARE, SELFPAY ==
[2020-02-23 03:02] VITALS: BMI 31.7
[2021-05-15 13:51] VITALS: BMI 30.4
[2021-05-20] VITALS (12 sets, daily range): BP systolic 111–151; BP diastolic 53–82; PULSE 81–113; RESP 8–18; TEMP 35.7–36.8; O2SAT 89–98; BMI 30.4
--- NOTE | 2021-05-20 07:08 | DI.RAD.S_ITS ---
PROCEDURE: XR SHOULDER RT 1V INDICATIONS: post op reverse total shoulder TECHNIQUE: 1 views of the shoulder were acquired. COMPARISON: [facility] [place], CR, XR SHOULDER 2+ VIEWS RIGHT, 03/27/2021, 11:05. FINDINGS: Bones: Reverse right shoulder arthroplasty. No dislocations. No suspicious bony lesions. Visualized ribs appear intact. Soft tissues: No suspicious soft tissue calcifications. IMPRESSION: Expected appearance of the right shoulder reverse arthroplasty. Dictated by: Siddhartha Singh M.D. on 05/20/2021 at 13:12 Approved by: Siddhartha Singh M.D. on 05/20/2021 at 13:40
--- NOTE | 2021-05-20 08:27 | PM.PREOP ---
Pre-operative Note COVID-19 COVID-19 status: Negative Result date/Date tested (Pos, Neg/Pending): 05/19/21 Interval Note History & Physical reviewed/Exam performed by Physician: Yes Changes to H&P: No
[2021-05-20] MEDS: CELECOXIB 200 MG CAPSULE PO (08:58)
[2021-05-20] MEDS: LACTATED RINGERS 1,000 ML 42 ML IV ×2 (08:58→11:20)
[2021-05-20] MEDS: ACETAMINOPHEN 325 MG TABLET 975 MG PO (08:58)
[2021-05-20] MEDS: PREGABALIN 75 MG CAPSULE PO (08:59)
--- NOTE | 2021-05-20 10:27 | SUR.PREOP ---
Block start time [1022] . Monitoring initiated and maintained throughout procedure. Oxygen and medications given per anesthesiologist instructions. Patient remained stable throughout procedure, no adverse reactions noted. Block end time [1027].
[2021-05-20] MEDS: fentaNYL 100 MCG/2 ML INJ 50 MCG IV (10:29)
[2021-05-20] MEDS: MIDAZOLAM 2 MG/2 ML VIAL IV (10:30)
[2021-05-20] MEDS: CEFAZOLIN 1 GM VIAL 2 GM IV (10:50)
[2021-05-20] MEDS: TRANEXAMIC ACID 1,000 MG VIAL 2000 MG INJ (11:00)
--- NOTE | 2021-05-20 11:07 | SUR.OPER ---
Beach chair with Schlein shoulder positioner. Lower body on padded OR bed. Head in foam padded head cradle, secured with straps. Non-operative arm secured <90 degrees abduction. Pillow under knees. Safety belt at thigh. Cloth tape over blanket over lower legs.
[2021-05-20] MEDS: BUPIVACAINE 0.25% W/ EPI 30 ML VIAL INJ (11:22)
--- NOTE | 2021-05-20 12:39 | PM.OP.1 ---
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 Radiographic studies have revealed changes consistent with a prior proximal humeral fracture with malunion and collapse of the humeral head. They have elected to proceed with reverse total shoulder replacement after discussion of the risks benefits and alternatives. Risks discussed included but were not limited to: Failure to improve, instability, infection, nerve damage, deep venous thrombosis, pulmonary embolism, stroke, coma, myocardial infarction and . Surgeon: Toney Ponce Sponsorship Coordinator: Roberto Stratton Anesthesia Type: General, Peripheral nerve block and Local Operative Notes Findings: Severe varus collapse and retroversion of the humeral head. Malunion of the tuberosities. Closure Type: primary Specimen(s): none sent Prosthetic devices, grafts, tissues, transplants, or devices: Prosthetics used in this procedure manufactured by the [employer] and included a [employer] total shoulder system with a 24 mm +4 lateralized base plate with a 25 mm central screw. There were 4 peripheral locking screws 5.5 mm in diameter and 16, 16, 16 and 28 mm in length. There was a 33/24 glenosphere. There was a size 5 135 modular stem with a 36+ 2 right cup and a 33 +6/33 humeral cup. Applied: implant(s) Estimated Blood Loss (mL): 200 Blood products transfused: none Procedure in detail: The patient was seen in the preoperative area where they identified the right shoulder as the operative site and this was marked with my initials. They received preoperative antibiotics and underwent the induction of an interscalene block. They were taken to the operating room and placed on the operating room table in a supine position with the underwent the induction of a general anesthetic. There were then repositioned in the ?beach chair? position using a dedicated positioner. All pressure points were well padded. The knees were slightly bent to prevent tension on the sciatic nerves. A time-out was performed. The right arm was prepared from the fingertips to the base of the neck with ChloraPrep in the usual fashion and draped through sterile drapes. An approximately 15 cm incision was created starting at the clavicle just above the coracoid and going to the deltoid insertion. The deltopectoral interval was used to access the shoulder taking the vein to the lateral side. The vein was unfortunately lacerated by a retractor during the case and ligated. The upper 1 cm of the pectoralis major was released. The biceps tendon was absent. The subscapularis was tagged for later repair. The shoulder was dislocated and a proximal humeral osteotomy performed using an intramedullary guide. A proximal humeral protector was then placed. Retractors were placed access the glenoid. A 360 degree release was performed of the remaining subscapularis with care being taken to protect the axillary nerve. The soft tissues were removed circumferentially around the glenoid. The guide was used to drill the guide pin in the center of the inferior glenoid. The Reamer and peripheral Reamer were used. The central hole was tapped. The glenoid base plate was assembled and inserted. The peripheral locking screws were then placed through the appropriate guide. The glenoid head was then applied. Stability was checked in rotation and axial loading prior to placing the set screw. We then turned our attention to the humerus. The proximal humeral protector was removed. Broaching was then performed beginning with a small 5 broach. This had satisfactory rotational fit and I did not wish to go to a larger broach and risk proximal humerus fracture. The offset guide for the proximal metaphyseal reamer was then applied and the metaphysis was reamed appropriately. The trial metaphyseal portion of the body was then applied to the broach. Trial reductions were performed and the size of the cup was optimized. She was dislocating in external rotation due to impingement of the malunited greater tuberosity and humeral head posteriorly. These were debrided to prevent impingement. Stability was checked in maximal internal and external rotation and range of motion was checked to allow access to the top of the head, internal rotation to an excess of 50? in the ?scarecrow position? and the ability to reach the groin. The appropriate final prosthetic components were then opened. The humeral prosthetic was then impacted into position. The humeral cup was placed. The joint was relocated and irrigated. The subscapularis was repaired to stump of tissue on the lesser tuberosity using [id number] Ethibond sutures. The deltopectoral interval was reapproximated with 0 Vicryl. Subcutaneous layer was closed with interrupted 3-0 Vicryl and skin with a running 3 0 V lock suture. Subcutaneous tissues were then infiltrated with 0.5% Marcaine for postoperative pain control. An Aquacel Ag dressing was applied and the patient's arm was placed in a sling. The patient was then transferred to the recovery room in good condition having tolerated the procedure well. Complications: none Post-operative Condition: stable Disposition: PACU Plan for aftercare: The patient will be allowed to do pendulum exercises and to use her arm passively in front of her body below shoulder level. She will be advanced to active range of motion after 6 weeks.
--- NOTE | 2021-05-20 13:18 | SUR.PHASEI ---
Received to PACU after general anesthesia. Airway patent, self maintained. Report from Dr Villeda and ALIYA Lewis.
--- NOTE | 2021-05-20 13:19 | SUR.PHASEI ---
Right arm sling on. Pt unable to move fingers or distinguish touch. Denies pain.
--- NOTE | 2021-05-20 13:50 | SUR.PHASEI ---
Pt transferred to room 206 with glasses on and belongings bag. Received in room by ALIYA Hu.
[2021-05-20] MEDS: LACTATED RINGERS 1,000 ML 100 ML IV ×2 (14:01→23:54)
[2021-05-20] MEDS: IBUPROFEN 400 MG TABLET PO ×3 (14:01→20:27)
--- NOTE | 2021-05-20 15:39 | PT-IP ANOTE ---
Met with pt to initiate evaluation but pt was not able to feel her right arm. PT assisted the pt to sit EOB to adjust her sling. Pt became lightheaded and diaphoretic. Provided assist back to bed. BP was stable - 147/68 HR 99 prior to movement and 139/82 HR 94 on return to supine. Symptoms resolved. Reported findings to RN. Will follow up to complete evaluation on 8/3 AM.
--- NOTE | 2021-05-20 19:19 | PC.NURSE ---
Patient states she takes her citalopram at bedtime, not at 1700 as scheduled. Called remote pharmacy and they changed this to 2100 instead.
[2021-05-20] MEDS: METFORMIN HCL 500 MG TABLET PO (20:27)
[2021-05-20] MEDS: CITALOPRAM 10 MG TABLET 20 MG PO (20:27)
[2021-05-20] MEDS: PANTOPRAZOLE DR 20 MG TABLET PO (20:27)
[2021-05-20] MEDS: DOCUSATE 100 MG CAPSULE PO (20:27)
[2021-05-20] MEDS: ACETAMINOPHEN 325 MG TABLET 650 MG PO (20:27)
[2021-05-20] MEDS: ASPIRIN EC 81 MG TABLET PO (20:27)
[2021-05-20] MEDS: CALCIUM CARB/VIT D3 500/200 TABLET 1 EACH PO (20:28)
[2021-05-21] VITALS (8 sets, daily range): BP systolic 97–120; BP diastolic 52–70; PULSE 72–89; RESP 16–17; TEMP 36.1–36.7; O2SAT 93–96
[2021-05-21] MEDS: IBUPROFEN 400 MG TABLET PO ×6 (00:05→21:50)
[2021-05-21 06:22] LABS: Hematocrit 33.2 % (36-46); Hemoglobin 11.1 g/dL (12.0-16.0)
[2021-05-21] MEDS: OXYCODONE IR 5 MG TABLET PO ×4 (06:41→20:05)
--- NOTE | 2021-05-21 07:35 | P.PN_ITS ---
Subjective Subjective Date Patient Seen: 05/21/21 Time Patient Seen: 07:36 Interval history: Patient's pain is well controlled. Denies fever chills. No nausea vomiting. Patient was dizzy yesterday and hypotensive will work with physical therapy and occupational therapy. Patient lives with her sister however she cares for her sister while at home. Exam Vital Signs (past 8 hours): - 05/21/21 00:00 05/21/21 03:00 05/21/21 03:12 Temperature 96.9 F L 97.4 F L Pulse Rate 84 77 73 Respiratory Rate 16 16 Blood Pressure 103/52 L 98/65 103/58 L Pulse Oximetry 93 96 05/21/21 06:00 Temperature Pulse Rate 89 Respiratory Rate Blood Pressure 97/59 L Pulse Oximetry Oxygen Delivery Method Room Air Oxygen Flow Rate 0 Narrative Exam Narrative: Pleasant 75-year-old female resting comfortably in bed in no apparent distress. Right shoulder dressing is Clean, dry, intact.. Motor functions intact distal right upper extremity. Right arm is warm and dry. Good capillary refill. Sensation grossly intact to light touch. Objective Labs Result Diagrams: 05/21/21 06:00 Labs: Laboratory Results - last 24 hr 05/21/21 06:00 Hgb 11.1 L Hct 33.2 L PFSH Medical History Anxiety Gonzales's esophagus with esophagitis Depression Diabetes type 2, controlled History of right breast cancer (07/2018) Skin cancer of face Surgical History History of carpal tunnel release of both wrists History of lumpectomy of right breast (07/2018) Hx of oophorectomy Family History Mother Breast cancer Father Colon cancer Social History household members: family Smoking Status: Never smoker alcohol intake: former Assessment & Plan Post-op Postoperative Procedures: Procedures Operation Date: 05/20/21 11:45 Actual Procedure Side Surgeon p Total Shoulder Arthroplasty - Reverse Right Toney Ponce MD s ORIF of greater tuberosity of Humerus Fracture Right Toney Ponce MD Postoperative day: 1 Postoperative status narrative: Stable Postoperative plan narrative: To do pendulum exercises and to use her arm poss ibly in front of her body below shoulder level. She will it be advanced to active range of motion after 6 weeks. She will work with Physical therapy and Occupational therapy today. Encouraged oral intake Possible discharge home later today or tomorrow. Quality VTE Deep Vein Thrombosis/Pulmonary Embolism Present on Admission: No
--- NOTE | 2021-05-21 09:20 | PT.IIE ---
Current Diagnoses Other displaced fracture of upper end of right humerus, subsequent encounter for fracture with nonunion (05/20/21) Other displaced fracture of upper end of right humerus, subsequent encounter for fracture with malunion (05/20/21) Surgery Performed Operation Date: 05/20/21 11:45 Actual Procedures p Total Shoulder Arthroplasty - Reverse(Right) - Toney Ponce MD s ORIF of greater tuberosity of Humerus Fracture(Right) - Toney Ponce MD Medical History (Last Reviewed 05/21/21 @ 07:38 by Lalo Negrete PA-C) Anxiety Gonzales's esophagus with esophagitis Depression Diabetes type 2, controlled History of right breast cancer (07/2018) Skin cancer of face Physical Therapy Inpatient Evaluation/Re-Eval M1 PT/OT-IP Prior Functional Status Start: 05/20/21 13:55 Freq: NEEDED Status: Active Protocol: Document 05/21/21 09:20 AB (Rec: 05/21/21 12:22 AB [id number]) Medical Review Prior Functional Status Medical History Reviewed Yes Communication able to make needs known Mobility and Gait pt stated that she is independent with all mobilities and ambulation without AD Activities of Daily Living and IADL's Indpendent Social History Household Members family Living Arrangements House Number of Floors (Floors) One Floor Number of Stairs To Enter/Railing? 1 step to enter Home Environment High Toilet,Walk in Shower Home Equipment Shower Seat with Backrest,Hand Held Shower Additional Social History Comment pt lives with her sister but is handicapped per pt and pt is the caregiver of her sister . sister may assist pt some but not physical assitance. pt stated that her friend can assist her as needed. pt plans to sleep on a recliner M2 PT-IP Current Condition Start: 05/20/21 13:55 Freq: NEEDED Status: Active Protocol: Document 05/21/21 09:20 AB (Rec: 05/21/21 12:22 AB [email or web address]) Physical Therapy Current Condition Current Condition Evaluation Date 05/21/21 Treatment Diagnosis s/p R reverse TSA; difficulty in walking Onset Date 05/20/21 Precautions Shoulder Precautions Sling,PROM,Internal Rotation to Body,No External Rotation, No Abduction,Forward Flexion to 90 degrees,Pendulums Weight Bearing Status Weight Bearing Status Non-Weight Bearing Allowed Weight Bearing Amount (enter % RUE NWB or #) (%) M3 PT-IP Subjective Start: 05/20/21 13:55 Freq: NEEDED Status: Active Protocol: Document 05/21/21 09:20 AB (Rec: 05/21/21 12:22 [email or web address]) Subjective Physical Therapy Visit Type Type Initial Evaluation Visit Start Time 09:20 Visit Stop Time 10:26 Total Visit Minutes 66 Number of ACCURACY EXPERT Visits 0 Physical Therapy Visit Comments Patient Comments pt is agreeable to do PT Therapy Pain Assessment Pain When Pain Assessed At Rest Pain Present Pain Present Pain Reported Location right shoulder Intensity 3 Scale Used Numeric (0 - 10) Pain Management Techniques Apply Cold,Modification of Treatment,Re-positioning, Timing of Activity with Medications M4 PT-IP Mobility and Gait Start: 05/20/21 13:55 Freq: NEEDED Status: Active Protocol: Document 05/21/21 09:20 AB (Rec: 05/21/21 12:22 [email or web address]) PT-Bed Mobility Assessment Rolling Level of Assist Standby Assistance Supine to Sit Supine to Sit Head of Bed Elevated Scooting Scooting to Edge of Bed Standby Assistance PT-Transfer Assessment Sit to and From Stand Sit to and from Stand Contact Guard Assistance,1 Person Assistance,Use of Upper Extremities Equipment Transfer Assistive Device None,Gait Belt Orthotic/Prosthetic Devices or Brace: Yes Transfers Transfer Destination Toilet Transfer Technique ambulated Transfer Ability Level of Assist Contact Guard Assistance,1 Person Assistance,Use of Upper Extremities Comments Mobility Comments BP supine: 114/72. pt completed supine to sit SBA. pt can be impulsive. educated on safety. educated on sling management and assisted with sling adjustement. completed elbow/wrist hand ROM. educated on pendulum exercise and shoulder precaution. BP checked in sittin/50. pt without c/o dizziness but slight shakiness and lightheadedness. BP checked again: 86/55. instructed pt to lay back in bed and completed sit to supine SBA. BP in supine: 109/64. pt rested for ~ 2more minutes. BP checked: 135/68. pt agreed to get up again and completed supine to sit SBA HOB elevated. pt without any complaints. BP: 98/63. pt tolerated ~2 min of sitting and BP: 100/62. agreed to transfer to chair and completed step transfer without AD CGA. BP after transfers: 105/64. pt agreed to ambulate in room and completed ~ 25 ft without AD CGA. BP after ambulation: 118 /65. pt requested to use the toilet and ambulated from chair to the toilet without AD CGA. completed toileting SBA and ambulated to the sink CGA without AD. pt was able to maintain standing CGA without AD while completing handwashing. ambulated back to the chair CGA. BP checked : 98/56. positioned pt on chair. call light and table placed within reach. pt stated that her friend will be able to assist her and come in for caregiver training . Set up at 130 pm this afternoon. Gait Assessment Gait Gait Assistance Required: Contact Guard Assist,1 Person Assist Distance (Feet) 25 Able to Maintain Weight Bearing Status Yes During Gait Assistive Devices Assistive Device None,Gait Belt Orthotic/Prosthetic Devices or Brace: Yes Gait Deviations General Gait Pattern Antalgic,Decreased Stride Length,Decreased Feet Clearance Factors Limiting Gait Function Factors Limiting Gait Function Decreased Activity Tolerance, Decreased Strength,Limited Range of Motion,Pain,Poor Balance,Poor Safety Awareness PT-Balance Assessment Sitting Balance and Reactions Static Sitting Balance Ability Good Dynamic Sitting Balance Ability Good Standing Balance and Reactions Static Standing Balance Ability Good Dynamic Standing Balance Ability Fair Device Used without AD M5 PT-IP Objective Assessments Start: 05/20/21 13:55 Freq: NEEDED Status: Active Protocol: Document 05/21/21 09:20 AB (Rec: 05/21/21 12:22 AB [email or web address]) Orientation Orientation/Cognition Level of Alertness Alert Orientation Name,Situation Language Function Ability No Deficits Noted Safety Awareness Decreased Safety Awareness Memory Description No Deficits Noted Gross Range of Motion Upper Extremity ROM Assessment Right Impaired Impairments limited elbow supination Lower Extremity ROM Assessment Within Functional Limits Strength Lower Extremity Strength Assessment Within Functional Limits Sensation Assessment Sensation Gross Sensation WNL M6 PT-IP Treatment Start: 05/20/21 13:55 Freq: NEEDED Status: Active Protocol: Document 05/21/21 09:20 AB (Rec: 05/21/21 12:22 AB [email or web address]) Physical Therapy Treatment Education Education Provided Precautions,Weight Bearing Status,Post-Op Packet,Safety M7 PT-IP Assessment and Plan Start: 05/20/21 13:55 Freq: NEEDED Status: Active Protocol: Document 05/21/21 09:20 AB (Rec: 05/21/21 12:22 AB [email or web address]) PT Summary Assessment and Plan Potential Rehabilitation Potential Fair Status of Condition at Evaluation Evolving Summary Impairments Pain,ROM,Strength,Balance, Coordination,Sensation,Tone, Cognition,Bed Mobility, Transfers,Gait,Activity Tolerance Assessment Summary pt requiring CGA with mobility but with decrease activity tolerance with decrease in BP with upright activities. Attempted x 2 with upright activities and BP was better on 2nd attempt but still has a drop in BP. Caregiver training set up at 130 pm this afternoon with pt and pt's friend. will continue to assess progress. Goals Bed Mobility Goal Independent Transfer Goal Independent Gait Goal Independent Gait Distance 200 Other Goals up/down 1 step without AD SBA Days to Meet Goals 5 Frequency of Treatment Frequency Of Treatment Twice a Day Treatment Plan Physical Therapy Treatment Plan Bed Mobility Training,Transfer Training,Gait Training, Therapeutic Exercise,Balance Retraining,Post Op Education, Discharge Planning,Hot or Cold Pack,Neuromuscular Re-ed, Coordination Retraining,Manual Therapy Precautions Shoulder Precautions Sling,PROM,Internal Rotation to Body,No External Rotation, No Abduction,Forward Flexion to 90 degrees,Pendulums Recommendations To Nursing Amount of Assist Needed 1 Person Assist Discharge Recommendations PT Discharge Recommendations Home with Assistance, Outpatient PT Transportation Needs at Discharge Private Vehicle
[2021-05-21] MEDS: ASPIRIN EC 81 MG TABLET PO ×2 (10:32→21:49)
[2021-05-21] MEDS: ACETAMINOPHEN 325 MG TABLET 650 MG PO ×3 (10:33→21:51)
[2021-05-21] MEDS: LETROZOLE 2.5 MG TABLET PO (10:34)
[2021-05-21] MEDS: CYANOCOBALAMIN (VITAMIN B-12) 500 MCG TABLET 1000 MCG PO (10:40)
[2021-05-21] MEDS: CALCIUM CARB/VIT D3 500/200 TABLET 1 EACH PO ×2 (10:41→21:49)
[2021-05-21] MEDS: CHOLECALCIFEROL (VITAMIN D3) 1,000 UNIT TABLET 1000 UNIT PO (10:46)
--- NOTE | 2021-05-21 12:32 | CM.DANOTE ---
DCP/Assessment: Reviewed chart. Patient is a 75yr old female admitted to [facility] for right TSA performed on 05-20-[address] Ponce. PCP is Dr. Sellers in [facility] Primary payor is 1)Medicare 2)[facility]. Met with patient this AM to discuss d/c plan. Patient concerned about her current status in the hospital? Confirmed with UR that patient is inpatient status patient made aware. Patient reports that she hopes to d/c home within the next 24hrs. Patient resides with her sister but has several friends that can assist as needed. Caregiver training with patient's friend to occur today at approximately 1:30pm. P: Anticipate home when stable. JORGE Amin Discharge Planning/Care Management CM Discharge Assessment Start: 05/21/21 12:30 Freq: Status: Active Protocol: Document 05/21/21 12:30 KJS (Rec: 05/21/21 12:32 KJS [id number]) Discharge Planning Assessment Assigned Head Grinder JORGE Amin Contact Information Maria Esther Bo (sister) Advance Directives? No History Provided By Patient,Medical Record Prior Living Arrangements House Household Members family Type of transporation used prior to Drives own vehicle admit Independent with ADL's Yes Is patient alert and oriented? Yes Caregiver for Another Yes: sister Barriers to Discharge No Discharge Plan Home Transportation Arrangement Patient has wide friend support and has ride home when medically stable. Referrals Initiated None needed Additional Comment Patient prefers outpatient therpay if needed. Whiteboard Updated in Patient Room with Yes name and ext. # of Head Grinder Review Status In Process Next Review Type Continued Stay Review Pre-Anesthesia Assessment Start: 05/13/21 13:34 Freq: Status: Active Protocol: Document 05/15/21 13:51 CAB (Rec: 05/13/21 14:04 CAB [id number]) Pre-Anesthesia Assessment Preferred Name [facility] Patient Information Reviewed Via Phone Assessment Assessment Completed With Patient Diagnostic Results BMP/CMP,EKG Comment Lab/EKG @ [facility] 04/30/21, COVID screen 05/18/21 Primary Care Provider Adrian Gallagher Seen Specialist in Last 12 Months Yes Specialist Seen Emergency,Oncologist, Orthopedist Primary Language Norwegian Preferred Language Norwegian Aircraft Mechanic Armament Required No Height 162.56 cm Weight 80.286 kg Body Mass Index (BMI) 30.4 Hearing Ability Normal Visual Assist Glasses Dentition Type Teeth, Natural Present Barriers to Learning None Hx Anesthesia Reactions Yes: It takes me awhile to wake up Hx Family Anesthesia Reaction No Hx Malignant Hyperthermia No Hx Blood Transfusions No Anesthesia Review Requested No Potato Pancake Frier No alcohol intake former Smoking Status Never smoker Substance Use Type does not use Pain Present Pain Reported Musculoskeletal Symptoms Joint Pain,Limited Range of Motion,Neck Pain,Radiating Pain into Limb History of Falling (Recent or History of No ) Patient is completely paralyzed or No completely immobile Mental Status Oriented to own ability Is patient on oxygen? No Does patient have RECINOS/SOB No Hx Sleep Apnea No Currently Taking a Beta Maninder No Can You Climb a Flight of Stairs Without Yes SOB Hx Chest Pain No Hx SOB No Hx Syncope or Dizziness No Anti-Coagulant Therapy No Has a Telesales Representative No Cardiac Testing No Hx Pacemaker/ICD No Pacemaker Rep Required? No Diet Type At Home Regular dysphagia No Gastrointestinal Symptoms Reflux Comment Gonzales's esophagus Bladder Pattern Frequency,Incontinent, Stress, Urgency Urinary Catheter Present No Hx Urinary Self Catheterization No Diabetes Yes HgbA1C 6.9 Date 04/30/21 Patient No Lactating No Hx Drug Resistant Organism No Presence of External or Internal Medical No Devices Have you had any close contact with No someone diagnosed with COVID-19? Marital Status Lives With family Prior Living Arrangements House Number of Floors (Floors) One Floor Does the Patient Have Assistance After Yes: Friend can stay overnight Surgery if needed Patient Discharge Plan Description Return Home Comment Pt advised overnight length of stay per surgeon Feels Safe in Current Environment Yes Been Physically Hurt or Threatened By a No Person in Current Environment Do you have thoughts of harming yourself None or others? Are you currently considering suicide? No Do you have a plan to hurt yourself or No Plan others? Do You Have Any Spiritual Beliefs That No May Affect Your HC Choices? Do You Have Any Cultural Practices That No May Affect Your HC Choices? Comment Religion Who Can We Speak to About Patient's Care Family, friends Identifying Code for Release of Patient Declines to issue Information Health Care Proxy/Next of Kin Xi (sister) Health Care Proxy Emergency Contact Name Kal (friend) Emergency Contact Advance Directives? Yes Power of Head Grinder No PAC Instructions Durable medical equipment, Medications to take/avoid, Nasal antibiotic,No ETOH/ petroleum product on skin DOS, NPO,Pre-surgical wash,Sensory aids,Sturdy shoes/comfortable clothes,Do not bring valuables and remove jewelry
--- NOTE | 2021-05-21 13:20 | PT.IPTN ---
Current Diagnoses Other displaced fracture of upper end of right humerus, subsequent encounter for fracture with nonunion (05/20/21) Other displaced fracture of upper end of right humerus, subsequent encounter for fracture with malunion (05/20/21) Surgery Performed Operation Date: 05/20/21 11:45 Actual Procedures p Total Shoulder Arthroplasty - Reverse(Right) - Toney Ponce MD s ORIF of greater tuberosity of Humerus Fracture(Right) - Toney Ponce MD Physical Therapy Treatment Note M2 PT-IP Current Condition Start: 05/20/21 13:55 Freq: NEEDED Status: Active Protocol: Document 05/21/21 09:20 AB (Rec: 05/21/21 12:22 AB [id number]) Physical Therapy Current Condition Current Condition Evaluation Date 05/21/21 Treatment Diagnosis s/p R reverse TSA; difficulty in walking Onset Date 05/20/21 Precautions Shoulder Precautions Sling,PROM,Internal Rotation to Body,No External Rotation, No Abduction,Forward Flexion to 90 degrees,Pendulums Weight Bearing Status Weight Bearing Status Non-Weight Bearing Allowed Weight Bearing Amount (enter % RUE NWB or #) (%) M3 PT-IP Subjective Start: 05/20/21 13:55 Freq: NEEDED Status: Active Protocol: Document 05/21/21 13:20 AB (Rec: 05/21/21 17:00 AB [id number]) Subjective Physical Therapy Visit Type Type Treatment Note Visit Start Time 13:20 Visit Stop Time 14:05 Total Visit Minutes 45 Number of TANK PROCESSOR Visits 0 Physical Therapy Visit Comments Patient Comments pt is agreeable to do PT; pt's friend in room for caregiver training Therapy Pain Assessment Pain When Pain Assessed At Rest Pain Present Pain Present Pain Reported Location right shoulder Intensity 3 Scale Used Numeric (0 - 10) M4 PT-IP Mobility and Gait Start: 05/20/21 13:55 Freq: NEEDED Status: Active Protocol: Document 05/21/21 13:20 AB (Rec: 05/21/21 17:00 AB [id number]) PT-Bed Mobility Assessment Supine to Sit Supine to Sit Standby Assistance,Head of Bed Elevated Sit to Supine Sit to Supine Standby Assistance,Head of Bed Elevated PT-Transfer Assessment Sit to and From Stand Sit to and from Stand Contact Guard Assistance,1 Person Assistance,Use of Upper Extremities Equipment Transfer Assistive Device None,Gait Belt Orthotic/Prosthetic Devices or Brace: Yes Transfers Transfer Destination Chair Transfer Technique ambulated Transfer Ability Level of Assist Contact Guard Assistance,1 Person Assistance Comments Mobility Comments pt supine in bed and agreed to do PT. pt's friend in room for training. pt completed supine to sit SBA with HOB elevated. pt plans to sleep on her recliner. educated pt' s friend on how to use safety belt and how to assist pt. pt 's friend was able to put safety belt on and assisted pt with sit to stand and ambulation in room ~ 50 ft CGA . caregiver training for sling management. educated on how to cynthia/doff sling, elbow/hand /wrist exercises and pendulum exercises. pt 's friend was able to put sling on pt. stair climbing training. PT demonstrated and assist pt with up/down step stool and completed with zander Morocho. educated pt's friend on how to assist pt and pt was able to assist and provide TRICHOLOGIST to pt. pt stated that she also has a 4 inch pole on the step that she can hold on to. pt requested to go back to bed . completed sit to supine SBA. positioned in bed. call light and table placed within reach. informed pt and pt's friend regarding safety concerns and friend stated that she can stay with pt for a day or 2 to assist her. Pt's BP stable: 108/61 supine at rest; 108/70 sitting on EOB, 113/62 after ambulation and 114/63 at end of tx session. Gait Assessment Gait Gait Assistance Required: Contact Guard Assist Distance (Feet) 50 Able to Maintain Weight Bearing Status Yes During Gait Assistive Devices Assistive Device Gait Belt Orthotic/Prosthetic Devices or Brace: Yes Gait Deviations General Gait Pattern Antalgic,Decreased Stride Length,Decreased Feet Clearance,Step-to Gait Factors Limiting Gait Function Factors Limiting Gait Function Decreased Activity Tolerance, Decreased Strength,Limited Range of Motion,Pain,Poor Balance,Poor Safety Awareness Comments Gait Comments pt refer to mobility section for details Stair Climbing Assessment Evaluation Level of Assist On Stairs Minimal Assistance Technique/Endurance Stair Climbing Direction Ascend and Descend Stair Climbing Technique Step to Step Number of Steps Climbed 1 Stair Climbing Set # Repetitions (reps) 3 M5 PT-IP Objective Assessments Start: 05/20/21 13:55 Freq: NEEDED Status: Active Protocol: Document 05/21/21 09:20 AB (Rec: 05/21/21 12:22 AB [email or web address]) Orientation Orientation/Cognition Level of Alertness Alert Orientation Name,Situation Language Function Ability No Deficits Noted Safety Awareness Decreased Safety Awareness Memory Description No Deficits Noted Gross Range of Motion Upper Extremity ROM Assessment Right Impaired Impairments limited elbow supination Lower Extremity ROM Assessment Within Functional Limits Strength Lower Extremity Strength Assessment Within Functional Limits Sensation Assessment Sensation Gross Sensation WNL M6 PT-IP Treatment Start: 05/20/21 13:55 Freq: NEEDED Status: Active Protocol: Document 05/21/21 13:20 AB (Rec: 05/21/21 17:00 AB [id number]) Physical Therapy Treatment Education Education Provided Precautions,Weight Bearing Status,Safety Brace Education [place],Caregiver M7 PT-IP Assessment and Plan Start: 05/20/21 13:55 Freq: NEEDED Status: Active Protocol: Document 05/21/21 13:20 AB (Rec: 05/21/21 17:00 AB [id number]) PT Summary Assessment and Plan Potential Rehabilitation Potential Good Summary Impairments Pain,ROM,Strength,Balance, Coordination,Sensation,Tone, Cognition,Bed Mobility, Transfers,Gait,Activity Tolerance Progress Towards Goals Slow Progress due to Activity Tolerance Assessment Summary caregiver training conducted and pt's friend was able to assist pt with mobility. pt's friend stated that she can stay with pt for 1-2 days to assist her as needed. pt will benefit from HHPT. Goals Bed Mobility Goal Independent Transfer Goal Independent Gait Goal Independent Gait Distance 200 Other Goals up/down 1 step without AD SBA Days to Meet Goals 5 Frequency of Treatment Frequency Of Treatment Twice a Day Treatment Plan Physical Therapy Treatment Plan Bed Mobility Training,Transfer Training,Gait Training, Therapeutic Exercise,Balance Retraining,Post Op Education, Discharge Planning,Hot or Cold Pack,Neuromuscular Re-ed, Coordination Retraining,Manual Therapy Precautions Shoulder Precautions Sling,PROM,Internal Rotation to Body,No External Rotation, No Abduction,Forward Flexion to 90 degrees,Pendulums Recommendations To Nursing Amount of Assist Needed 1 Person Assist Discharge Recommendations PT Discharge Recommendations Home with Assistance,Home Health Transportation Needs at Discharge Private Vehicle
[2021-05-21] MEDS: METFORMIN HCL 500 MG TABLET PO (16:54)
[2021-05-21] MEDS: DOCUSATE 100 MG CAPSULE PO (21:49)
[2021-05-21] MEDS: CITALOPRAM 10 MG TABLET 20 MG PO (21:50)
[2021-05-21] MEDS: PANTOPRAZOLE DR 20 MG TABLET PO (21:50)
[2021-05-22] MEDS: IBUPROFEN 400 MG TABLET PO ×3 (01:12→09:08)
[2021-05-22 03:54] VITALS: BP 95/54; PULSE 75; RESP 16; TEMP 36.2; O2SAT 92
--- NOTE | 2021-05-22 07:53 | P.DS_ITS ---
History of Present Illness History of Present Illness Date Patient Seen: 05/22/21 Time Patient Seen: 07:53 Chief complaint: OPB Narrative: The history and physical is contained in the chart previously completed note. Please refer to that note for this information. Discharge Providers Provider Date of admission: 05/20/21 07:52 Discharge Date: 05/22/21 Primary care physician: Adrian Gallagher MD Consults: 05/20/21 13:45 Consult to Discharge Planning Routine Comment: Consult to Physical Therapy Evaluate & Treat Comment: Physician Instructions: pendulums, PROM 90 FF, 0 abd, 0 ER, IR to body Discharge provider: Toney Ponce MD Summary Hospital Course Discharge Diagnosis: 1. 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 Mild post hemorrhagic anemia 3. Orthostatic hypotension Hospital Course: Patient was admitted to the hospital and taken directly to the operating room on May 20, 2021. She underwent a right reverse total shoulder arthroplasty for the painful malunion of a prior proximal humerus fracture. She was stable postoperatively but did have lightheadedness when she attempted to get up and walk. She was maintained in the hospital for an additional 24 hours while oral fluids were emphasized. On postoperative day 2 her symptoms of lightheadedness have resolved. Status at Discharge Cognitive/behavioral status at discharge: oriented Functional status at discharge: independent ambulation Overall status at discharge: patient is progressing back to baseline Time Spent with Patient Time spent: Less than 30 minutes Exam Vital Signs (past 8 hours): - 05/22/21 03:54 Temperature 97.2 F L Pulse Rate 75 Respiratory Rate 16 Blood Pressure 95/54 L Pulse Oximetry 92 Oxygen Delivery Method Room Air Oxygen Flow Rate 0 Narrative Exam Narrative: Right shoulder wound is dressed with no drainage on the bandage. Light touch is intact in the radial, ulnar, median, musculocutaneous and axillary nerve distribution. She can extend her thumb, abduct her thumb, abduct her fingers and can fire her biceps and deltoid. Objective Labs Result Diagrams: 05/21/21 06:00 [facility] Medical History Anxiety Gonzales's esophagus with esophagitis Depression Diabetes type 2, controlled History of right breast cancer (07/2018) Skin cancer of face Surgical History History of carpal tunnel release of both wrists History of lumpectomy of right breast (07/2018) Hx of oophorectomy Family History Mother Breast cancer Father Colon cancer Social History household members: family Smoking Status: Never smoker alcohol intake: former Discharge Assessment & Plan Assessment and Plan Assessment: Stable postoperative day 2 status post right reverse total shoulder replacement for proximal humeral malunion. She had an episode of orthostatic hypotension which appears to have resolved with time and oral fluids. She now appears to be stable for discharge. Plan of Treatment: Discharge today with follow-up in my office in 10-14 days. She has been instructed in pendulum exercises and and the need to keep her arm in front of her body below shoulder level. She will have physical therapy starting about 6 weeks after surgery. A prescription for oxycodone has been sent into her pharmacy. She has been instructed in the use of anti-inflammatories, and Tylenol for pain relief. She has also been instructed in the use of low-dose aspirin for DVT prophylaxis. Discharge Plan Discharge Plan Patient Disposition: Home Discharge orders & Medications Prescriptions: New acetaminophen 325 mg Tablet 650 mg PO TID 30 Days Qty: 180 RF: 0 aspirin 81 mg Tablet,Delayed Release (Dr/Ec) 81 mg PO BID 42 Days Qty: 84 RF: 0 ibuprofen 400 mg Tablet 400 mg PO Q4HR 30 Days RF: 0 oxycodone 5 mg Tablet 5 mg PO Q4H PRN (Reason: Pain, Moderate (4-6)) Qty: 40 RF: 0 Continued citalopram 10 mg tablet 20 mg PO QPM RF: 0 omeprazole 20 mg capsule,delayed release(DR/EC) 20 mg PO BEDTIME RF: 0 metformin 500 mg Tablet 500 mg PO BID RF: 0 letrozole 2.5 mg Tablet 2.5 mg PO DAILY RF: 0 cyanocobalamin (vitamin B-12) [Vitamin B-12] 1,000 mcg Tablet 1,000 mcg PO DAILY RF: 0 calcium carbonate-vitamin D3 [Calcium 600 + D(3)] 600 mg(1,500mg) -400 unit Tablet 1 tab PO BID RF: 0 cholecalciferol (vitamin D3) [Vitamin D3] 50 mcg (2,000 unit) Capsule 1,000 unit PO DAILY RF: 0 Prolia 1 applic IV [id number] RF: 0 Follow up/Referrals: Adrian Gallagher MD [Primary Care Provider] - Toney Ponce MD [Physician] - 2 Weeks Discharge Health Status Multidrug resistant organism: No MDRO Diet/Activity/Treatments Diet: Diet as Tolerated and Carb-consistent/Diabetic Activity: You may use your right hand in front of your body below shoulder level. Lift no more than 1-2 lb. Use the sling except for physical therapy exercises or when using the hand for the computer, reading, or self-care. Cold/Heat Therapy: Apply ice to the right shoulder for 15 minutes every hour as needed for pain control. Skin/Wound/Dressing Care Report to your healthcare provider any signs of infection, such as:: chills, fever, night sweats, increased pain, unusual drainage and unusual redness Dressing: Leave the dressing in place until follow-up. You may shower with the dressing in place. If the central strip becomes saturated with either water or blood, please call the office to have it evaluated. Visit Report/Discharge Packet Instructions: DI for Prescription Opioid Use, DI for Shoulder Replacement Stand Alone Forms: Surgery Discharge Discharge Data Primary Care Provider: Adrian Gallagher Quality VTE Deep Vein Thrombosis/Pulmonary Embolism Present on Admission: No
[2021-05-22 08:00] VITALS: BP 101/58; PULSE 76; RESP 18; TEMP 36.6; O2SAT 93
[2021-05-22] MEDS: METFORMIN HCL 500 MG TABLET PO (09:07)
[2021-05-22] MEDS: ASPIRIN EC 81 MG TABLET PO (09:07)
[2021-05-22] MEDS: ACETAMINOPHEN 325 MG TABLET 650 MG PO (09:07)
[2021-05-22] MEDS: CHOLECALCIFEROL (VITAMIN D3) 1,000 UNIT TABLET 1000 UNIT PO (09:08)
[2021-05-22] MEDS: DOCUSATE 100 MG CAPSULE PO (09:08)
[2021-05-22] MEDS: OXYCODONE IR 5 MG TABLET PO (09:08)
[2021-05-22] MEDS: CALCIUM CARB/VIT D3 500/200 TABLET 1 EACH PO (09:21)
[2021-05-22] MEDS: LETROZOLE 2.5 MG TABLET PO (09:21)
[2021-05-22] MEDS: CYANOCOBALAMIN (VITAMIN B-12) 500 MCG TABLET 1000 MCG PO (09:21)
--- NOTE | 2021-05-22 10:25 | PT.IPTN ---
Current Diagnoses Other displaced fracture of upper end of right humerus, subsequent encounter for fracture with nonunion (05/20/21) Other displaced fracture of upper end of right humerus, subsequent encounter for fracture with malunion (05/20/21) Surgery Performed Operation Date: 05/20/21 11:45 Actual Procedures p Total Shoulder Arthroplasty - Reverse(Right) - Toney Ponce MD s ORIF of greater tuberosity of Humerus Fracture(Right) - Toney Ponce MD Physical Therapy Treatment Note M2 PT-IP Current Condition Start: 05/20/21 13:55 Freq: NEEDED Status: Active Protocol: Document 05/21/21 09:20 AB (Rec: 05/21/21 12:22 AB [id number]) Physical Therapy Current Condition Current Condition Evaluation Date 05/21/21 Treatment Diagnosis s/p R reverse TSA; difficulty in walking Onset Date 05/20/21 Precautions Shoulder Precautions Sling,PROM,Internal Rotation to Body,No External Rotation, No Abduction,Forward Flexion to 90 degrees,Pendulums Weight Bearing Status Weight Bearing Status Non-Weight Bearing Allowed Weight Bearing Amount (enter % RUE NWB or #) (%) M3 PT-IP Subjective Start: 05/20/21 13:55 Freq: NEEDED Status: Active Protocol: Document 05/22/21 09:50 SP (Rec: 05/22/21 13:10 SP [id number]) Subjective Physical Therapy Visit Type Type Treatment Note Visit Start Time 09:50 Visit Stop Time 10:25 Total Visit Minutes 35 Number of PREFORM PLATE MAKER Visits 1 Physical Therapy Visit Comments Patient Comments Pt agreeable to working with therapy. Therapy Pain Assessment Pain When Pain Assessed During Mobility Pain Present Pain Present Pain Reported Location right shoulder Intensity 4 Scale Used Numeric (0 - 10) Description Aching,Pressure,With Movement Pain Behaviors Facial Grimacing Pain Management Techniques Modification of Treatment,Re- positioning,Timing of Activity with Medications M4 PT-IP Mobility and Gait Start: 05/20/21 13:55 Freq: NEEDED Status: Active Protocol: Document 05/22/21 09:50 SP (Rec: 05/22/21 13:10 SP [id number]) PT-Transfer Assessment Sit to and From Stand Sit to and from Stand Standby Assistance,Use of Upper Extremities Equipment Transfer Assistive Device None,Gait Belt,Straight Cane Orthotic/Prosthetic Devices or Brace: Yes Transfers Transfer Destination Chair Transfer Technique ambulated with no AD CGA, w/ SPC SBA Transfer Ability Level of Assist Contact Guard Assistance,1 Person Assistance Comments Mobility Comments PREFORM PLATE MAKER reviewed don/ doff sling and awareness of positioning, RUE UE exercise ROM allowed to do in sitting and assist elevating more to decrease wt of R shoulder pressure when standing even though was in good positioning. Min A required as needed for don/ doff sling due to unable to reach behind back for strap mgt of which pt states her friend can assist her with. Discussed putting shirt on RUE first then L and buttom up shirt easiest. Suggested asking for order for OT but pt delined wants to leave by 12 and they can figure it out and PREFORM PLATE MAKER suggestions helped understand. Pt completed sit<> stand with use of LUE as needed, stable. Walked further distance into hallway CGA with noted trunk over wt shift at times to R 5% A as needed with cuing for wider stagger receiprocol stepping around nursing station, stairs and back to room approx 220 ft, ascend/descend 3 step CGA L HR down pressure to assimulate handle can grab, stable. Assessment gait using SPC approx 100ft into hallway with Mod cuing for patterning SBA, improved stability and decreased assist required. Pt was seated in chair with call light and all needs in reach when left. Pt stated her sister has SPCs at home she can use and agreed helped her feel more stable walking. Pt is ok to return home when medically cleared with friend to assist her. Gait Assessment Gait Gait Assistance Required: Contact Guard Assist Distance (Feet) 220 Able to Maintain Weight Bearing Status Yes During Gait Assistive Devices Assistive Device None,Gait Belt,Straight Cane Orthotic/Prosthetic Devices or Brace: Yes Gait Deviations General Gait Pattern Antalgic,Decreased Stride Length,Decreased Feet Clearance,Lateral Trunk Lean, Narrow Based Gait Factors Limiting Gait Function Factors Limiting Gait Function Decreased Activity Tolerance, Decreased Strength,Limited Range of Motion,Pain,Poor Balance,Poor Safety Awareness Comments Gait Comments See mobility comments Stair Climbing Assessment Evaluation Level of Assist On Stairs Contact Guard Assistance Devices Stair Climbing Assistive Devices Left Railing Technique/Endurance Stair Climbing Direction Ascend and Descend Stair Climbing Technique Step to Step Number of Steps Climbed 3 Stair Climbing Set # Repetitions (reps) 1 Comments Stair Climbing Comments L HR ascend, R HR descend as uses at home, CGA step over step patterning. PT-Balance Assessment Sitting Balance and Reactions Static Sitting Balance Ability Normal Dynamic Sitting Balance Ability Normal Standing Balance and Reactions Static Standing Balance Ability Good Dynamic Standing Balance Ability Poor Device Used without AD, fair with SPC M5 PT-IP Objective Assessments Start: 05/20/21 13:55 Freq: NEEDED Status: Active Protocol: Document 05/21/21 09:20 AB (Rec: 05/21/21 12:22 AB [id number]) Orientation Orientation/Cognition Level of Alertness Alert Orientation Name,Situation Language Function Ability No Deficits Noted Safety Awareness Decreased Safety Awareness Memory Description No Deficits Noted Gross Range of Motion Upper Extremity ROM Assessment Right Impaired Impairments limited elbow supination Lower Extremity ROM Assessment Within Functional Limits Strength Lower Extremity Strength Assessment Within Functional Limits Sensation Assessment Sensation Gross Sensation WNL M6 PT-IP Treatment Start: 05/20/21 13:55 Freq: NEEDED Status: Active Protocol: Document 05/22/21 09:50 SP (Rec: 05/22/21 13:10 SP [id number]) Physical Therapy Treatment Exercises Exercises Elbow Flexion/Extension,Wrist ROM,Hand ROM Education Education Provided Precautions,Weight Bearing Status,Safety Brace Education Donning,[place],Patient Other Treatments Other Treatment Performed Discussed sequencing don/doff sling and dressing. Suggested if can get OT consult further trng but pt declined. M7 PT-IP Assessment and Plan Start: 05/20/21 13:55 Freq: NEEDED Status: Active Protocol: Document 05/22/21 09:50 SP (Rec: 05/22/21 13:10 SP [id number]) PT Summary Assessment and Plan Potential Rehabilitation Potential Good Status of Condition at Evaluation Evolving Summary Impairments Pain,ROM,Strength,Balance, Coordination,Sensation,Tone, Cognition,Bed Mobility, Transfers,Gait,Activity Tolerance Progress Towards Goals Progressing Toward Goals,Slow Progress due to Activity Tolerance Assessment Summary Pt required CGG- 5% A during gait without AD, and SBA with SPC. Suggested use of SPC and pt can borrow one from sister. Pt CGA on stairs and SBA transfers. pt's friend will stay with pt for 1-2 days to assist her as needed. pt will benefit from HHPT to assist with strength, balance, dressing, showering to improve functional independance. . Goals Bed Mobility Goal Independent Transfer Goal Independent Gait Goal Independent Gait Distance 200 Other Goals up/down 1 step without AD SBA Days to Meet Goals 5 Frequency of Treatment Frequency Of Treatment Twice a Day Treatment Plan Physical Therapy Treatment Plan Bed Mobility Training,Transfer Training,Gait Training, Therapeutic Exercise,Balance Retraining,Post Op Education, Discharge Planning,Hot or Cold Pack,Neuromuscular Re-ed, Coordination Retraining,Manual Therapy Other Recommendations and Next Treatment dynamic balance, gait LRAD, Focus RUE post op ex, trng sling mgt. Precautions Shoulder Precautions Sling,PROM,Internal Rotation to Body,No External Rotation, No Abduction,Forward Flexion to 90 degrees,Pendulums Recommendations To Nursing Amount of Assist Needed Standby Assistance,1 Person Assist Discharge Recommendations PT Discharge Recommendations Home with Assistance,Home Health Transportation Needs at Discharge Private Vehicle
--- NOTE | 2021-05-22 11:44 | CM.DPC ---
DCP continued: Received notification patient medically stable for discharge today. Met with patient to confirm plan. Patient has friend staying with her and coming in to do caregiver training. Reviewed Dr. Ponce d/c order and no home health indicated. Provided patient with requested resource for ONC/ACOUSTIC ENGINEER at [facility]. No additional needs identified. P: Home today. JORGE Amin
--- NOTE | 2021-05-22 13:35 | PC.NURSE ---
Pt is dressed and ready for discharge home with friend. IV has been removed. Went over d/c instructions with Pt and Friend-discussed d/c meds, time of last dose, reviewed stroke education, encouraged Pt to drink fluids to prevent constipation or dehydration. Pt denies further questions and was taken out via w/c by RN to pov with friend and all belongings.
== END 2021-05-22 12:30 | disposition home or self-care (01) | DRG 483 ==
LOC: OR 07:53 → AC 07:55
PROVIDERS: Admitting Provider Orthopaedic Surgery; PCP Family Medicine; Referring Provider Orthopaedic Surgery; Visit Provider Orthopaedic Surgery
PROC: 0RRJ00Z Replacement of Right Shoulder Joint with Reverse Ball and Socket Synthetic Substitute, Open Approach (ICD-10-PCS; CPT 23472; principal; 2021-05-20 11:45)
PROC: 0RRJ00Z Replacement of Right Shoulder Joint with Reverse Ball and Socket Synthetic Substitute, Open Approach (ICD-10-PCS; 2021-05-20 11:45)
DX: S42.291P Other displaced fracture of upper end of right humerus, subsequent encounter for fracture with malunion (principal); E11.9 Type 2 diabetes mellitus without complications; Z79.84 Long term (current) use of oral hypoglycemic drugs; I95.1 Orthostatic hypotension; K21.9 Gastro-esophageal reflux disease without esophagitis; F41.8 Other specified anxiety disorders; Z20.822 Contact with and (suspected) exposure to COVID-19; W19.XXXD Unspecified fall, subsequent encounter
CPT/HCPCS: 36415; 64450; 73020; 85014; 85018; 87635; 97116; 97162; 97530; C1776; C9803; J0330; J0690; J2250; J2405; J2704; J3010

== ENCOUNTER → 2023-06-27 08:40 | Outpatient (CLI) | payer MEDICARE, SELFPAY ==
[2021-05-20 16:39] VITALS: BMI 30.4
--- NOTE | 2023-06-27 08:42 | DI.MRI.S_ITS ---
PROCEDURE: MR LUMBAR SPINE WO CON INDICATIONS: Spinal stenosis, lumbar region with neurogenic cla TECHNIQUE: Noncontrast sagittal T1 spin echo and T2 fast echo, sagittal STIR, and T2 fast spin echo through the lumbar spine. In cases with scoliosis, additional coronal T2 fast spin echo may be performed. COMPARISON: [facility] Outside Film, CR, XR LUMBAR SPINE WITH OBLIQUES, 04/30/2023, 9:19. FINDINGS: Image quality: Excellent. Alignment and Curvature: 5 lumbar type vertebral bodies are present by plain film. There is moderate leftward curvature of the lumbar spine. Mild kyphosis at T11-T12. 3 mm of retrolisthesis of T12 on L1. 5 mm of retrolisthesis of L1 on L2 and L2 on L3. 4 mm of retrolisthesis of L3 on L4. 5 mm of anterolisthesis of L4 on L5. Bone Marrow: Marrow is of normal overall signal. There is moderate wedging of T11. Linear low T1/T2 signal intensity traverses the superior T11 endplate, with mild surrounding ill-defined STIR signal elevation. There is mild wedging of T12. Linear low T1/T2 signal intensity traverses the inferior T12 vertebral body, with mild surrounding ill-defined STIR signal elevation. Mild reactive signal throughout the endplates of the lumbar and lower thoracic spine. Spinal Cord: Conus medullaris terminates at the lower L1 level. Visualized cord demonstrates normal signal and size. Paraspinous Soft Tissues: No paravertebral masses. T10-T11: Moderate disc desiccation. Mild diffuse disc bulge. Retropulsion at the superior T11 level. Mild canal stenosis. Mild right and moderate left foraminal stenosis. T11-T12: Mild disc desiccation and diffuse disc bulge. Mild facet and ligamentum flavum hypertrophy. Mild epidural lipomatosis. Mild canal stenosis. Mild bilateral foraminal stenosis. T12-L1: Moderate disc height loss and desiccation. Mild diffuse disc bulge. Mild facet and ligamentum flavum hypertrophy. Mild canal stenosis. Mild bilateral foraminal stenosis. L1-L2: Moderate disc height loss and desiccation. Moderate diffuse disc bulge/osteophyte. Mild facet and ligamentum flavum hypertrophy. Mild epidural lipomatosis. Moderate canal stenosis. Moderate right and mild left foraminal stenosis. L2-L3: Moderate disc height loss and desiccation. Moderate diffuse disc bulge/osteophyte. Mild facet and ligamentum flavum hypertrophy. Mild epidural lipomatosis. Severe canal stenosis. Moderate to severe right and moderate left subarticular foraminal stenosis. Mild right L2 nerve root compression. L3-L4: Moderate disc height loss and desiccation. Mild diffuse disc bulge. Mild facet and ligamentum flavum hypertrophy. Mild epidural lipomatosis. Mild canal stenosis. Severe left and moderate to severe right foraminal stenosis. Left greater than right L3 nerve root compression. L4-L5: Moderate disc height loss and desiccation. Mild diffuse disc bulge. Mild facet and ligamentum flavum hypertrophy. Mild epidural lipomatosis. Moderate canal stenosis. Moderate subarticular foraminal stenosis bilaterally. L5-S1: Moderate disc height loss and desiccation. Mild diffuse disc bulge with superimposed left far lateral broad-based protrusion. Mild bilateral facet hypertrophy. Mild canal stenosis. Severe left and mild right foraminal stenosis. Left L5 nerve root compression. IMPRESSION: 1. Multilevel degenerative disc and facet disease, as well as ligamentum flavum hypertrophy and epidural lipomatosis. 2. Multilevel canal stenoses, worst at L2-L3 where there is severe canal stenosis. Moderate canal stenoses at L1-L2 and L4-L5 are present. 3. Multilevel foraminal stenoses, worst at L2-L3, L3-L4, and L5-S1, where there is associated intraforaminal nerve root compression. Recommend correlation with clinical symptoms to ascertain relevance of these findings. 4. Subacute compression fractures of T11 and T12. Dictated by: Lamont Mack M.D. on 06/29/2023 at 9:53 Approved by: Lamont Mack M.D. on 06/29/2023 at 10:00
== END ==
PROVIDERS: PCP Family Medicine; Referring Provider Physical Medicine & Rehabilitation; Visit Provider Physical Medicine & Rehabilitation
DX: M48.062 Spinal stenosis, lumbar region with neurogenic claudication (principal); M48.07 Spinal stenosis, lumbosacral region; M51.36 Other intervertebral disc degeneration, lumbar region; M51.37 Other intervertebral disc degeneration, lumbosacral region; M47.816 Spondylosis without myelopathy or radiculopathy, lumbar region; M47.817 Spondylosis without myelopathy or radiculopathy, lumbosacral region; M48.54XA Collapsed vertebra, not elsewhere classified, thoracic region, initial encounter for fracture
CPT/HCPCS: 72148